=== PATIENT | male | born 1940 | race Caucasian/White ===

== ENCOUNTER 2018-11-15 11:07 | Day surgery (SDC) | payer MEDICARE, OTHER, SELFPAY ==
--- NOTE | 2018-11-15 | PATH_ITS ---
[facility] Accession Number: [id number] . 01 Material submitted: . PART A: colon - RIGHT COLON BIOPSIES PART B: colon - LEFT COLON BIOPSIES PART C: colon - TRANSVERSE COLON BIOSPIES PART D: rectum - RECTAL BIOPSIES . 02 Diagnosis: A. Right Colon, Biopsies: Superficial portions of colorectal mucosa with no significant histomorphologic abnormality. Negative for active inflammation, granulomas, features of dysplasia, or malignancy. . B. Left Colon, Biopsies: Superficial portions of colorectal mucosa with no significant histomorphologic abnormality. Negative for active inflammation, granulomas, features of dysplasia, or malignancy. . C. Transverse Colon Biopsies: Superficial portions of colorectal mucosa with no significant histomorphologic abnormality. Negative for active inflammation, granulomas, features of dysplasia, or malignancy. . D. Rectal Biopsies: Invasive adenocarcinoma, moderately differentiated with mucinous features. Mismatch repair panel by IHC pending; results will be reported as an addendum. MRV/11/16/2018 . 02 Comment: Results discussed with medical pathology teacher María on 11/16/2018 at aproximatley 4:00 p.m. . Part D was reviewed by my colleague, Dr. Gonsales, who concurs with the interpretation. . 02 Electronically signed: . Kim Gomez MD, Pathologist NPI- [id number] . 01 Gross description: . Part A: RIGHT COLON BIOPSIES: Received in formalin are 4 fragment(s) of swift, soft tissue measuring 0.1 x 0.1 x 0.1 cm to 0.2 x 0.2 x 0.2 cm which is entirely submitted and submitted entirely in 1 cassette(s) Part B: LEFT COLON BIOPSIES: Received in formalin are multiple fragment(s) of swift, soft tissue measuring 0.1 x 0.1 x 0.1 cm to 0.3 x 0.2 x 0.2 cm which is entirely submitted and submitted entirely in 1 cassette(s) Part C: TRANSVERSE COLON BIOSPIES: Received in formalin are multiple fragment(s) of swift, soft tissue measuring 0.1 x 0.1 x 0.1 cm to 0.2 x 0.2 x 0.2 cm which is entirely submitted and submitted entirely in 1 cassette(s) Part D: RECTAL BIOPSIES: Received in formalin are multiple fragment(s) of swift, soft tissue measuring 0.1 x 0.1 x 0.1 cm to 0.2 x 0.2 x 0.2 cm which is entirely submitted and submitted entirely in 1 cassette(s) /[facility] /[facility] . 02 Pathologist provided ICD-10: C18.9 . 02 CPT . 401867, 573661, 400720, [id number], [id number], [id number] Performed at: 01 [facility] [address] [place] [address], [place], [place] [id number] MD Yaron Carreno MD Phone: [phone] Performed at: 02 [facility] [address] [place], [place] [id number] MD Ольга Gonsales MD Phone: [phone]
[2018-11-15 11:25] VITALS: BP 136/80; PULSE 80; RESP 16; TEMP 36.9; O2SAT 98; BMI 28.0
[2018-11-15] MEDS: SODIUM CHLORIDE 0.9% 1,000 ML 42 ML IV (11:36)
--- NOTE | 2018-11-15 12:04 | PM.HP.1 ---
History of Present Illness Date Patient Seen: 11/15/18 Time Patient Seen: 12:04 Chief complaint: [id number] COLONOSCOPY W/POSS BX Narrative: History of colon polyps Patient History Surgical History (Updated 11/14/18 @ 16:55 by Angelica Turcios RN) History of colonoscopy (Acute) Social History household members: spouse Family & Social History Social History: household members spouse Meds Home Medications Medication Instructions Recorded Confirmed Type aspirin 81 mg PO DAILY 11/15/18 11/15/18 History Allergies Allergy/AdvReac Type Severity Reaction Status Date / Time No Known Drug Allergies Allergy Verified 11/15/18 11:19 Exam Vital Signs (past 8 hours): - 11/15/18 11:25 Temperature 98.4 F Pulse Rate 80 Respiratory Rate 16 Blood Pressure 136/80 Pulse Oximetry 98 Oxygen Delivery Method Room Air Narrative Exam Narrative: Oropharynx free of lesions Chest clear to auscultation and percussion Cardiac exam reveals no S3 or murmur. Assessment & Plan Assessment & Plan narrative: History of colon polyps plan is for repeat colonoscopy. Risks, benefits, alternatives have been explained.
--- NOTE | 2018-11-15 12:05 | PM.OP.ENDO ---
Operative Date/Time/Diagnoses Date of procedure: 11/15/18 Time of procedure: 12:05 Pre-op diagnosis: See indication and findings Procedure & Clinicians Study performed: Colonoscopy Same procedure as scheduled: Yes Indications: Ulcerative colitis history Surgeon: Bonnie Cobian Procedure Notes Procedure in detail: After informed consent was obtained the patient was placed in left lateral decubitus position. The video colonoscope was introduced the rectum and slowly advanced to the cecum. On slow withdrawal mucosa was carefully examined. The scope was removed. The patient tolerated procedure well. The preparation was only fair in the right side of the colon with some retained vegetable matter not allowing for complete evacuation of remaining fluid. In addition patient became a little combative when the scope was in the right colon. Blood loss none Complications none Medications Total sedation time 39 minutes Fentanyl 200 mg Versed 9 mg IV titration Findings: 1. No evidence for underlying colitis. Mucosa looks quite normal. Two biopsies taken every 10 cm in the right, transverse, and left colon. 2. Rectum reveals 4 x 6 cm flat though irregular lesion from the anal verge up to 6 cm. Several biopsies were taken. This may well represent adenocarcinoma of the rectum. We will merely await biopsy results hopefully by Tuesday. If it is malignant as expected will need to perform MRI with rectal protocol and refer to colorectal surgery. I will be in touch with Dr. Flores.
[2018-11-15] MEDS: fentaNYL 250 MCG/5 ML INJ IV (13:25)
[2018-11-15] MEDS: MIDAZOLAM 5 MG/5 ML VIAL IV (13:28)
[2018-11-15 14:02] VITALS: BP 105/64; PULSE 73; RESP 14; TEMP 36.6; O2SAT 98
[2018-11-15 14:07] VITALS: BP 113/62; PULSE 68; RESP 12; O2SAT 97
[2018-11-15 14:12] VITALS: BP 107/66; PULSE 70; RESP 11; O2SAT 97
[2018-11-15 14:22] VITALS: BP 110/61; PULSE 72; RESP 18; TEMP 36.6; O2SAT 98
--- NOTE | 2018-11-15 14:23 | SUR.PHASEI ---
PACU Post procedure note: VSS, O2 Sat on RA WNL, No complaints of pain. tolerating po without any nausea. Stable for transfer to Phase II. Lissy Shin RN.
[2018-11-15 14:55] VITALS: BP 114/68; PULSE 77; RESP 18; O2SAT 99
== END 2018-11-15 15:10 ==
PROVIDERS: PCP Family Medicine; Visit Provider Internal Medicine Gastroenterology
PROC: 0DJD8ZZ Inspection of Lower Intestinal Tract, Via Natural or Artificial Opening Endoscopic (ICD-10-PCS; CPT 45378; principal; 2018-11-15 13:30)
DX: Z86.010 Personal history of colon polyps (principal); Z87.19 Personal history of other diseases of the digestive system; C20 Malignant neoplasm of rectum
CPT/HCPCS: 45380; 88305; 88341; 88342; J2250; J3010

== ENCOUNTER 2019-02-06 11:10 | Day surgery (SDC) | payer MEDICARE, OTHER, SELFPAY ==
[2019-02-01 09:01] VITALS: BMI 28.0
[2019-02-06] VITALS (8 sets, daily range): BP systolic 116–143; BP diastolic 63–77; PULSE 64–79; RESP 10–17; TEMP 36.1–36.9; O2SAT 97–100; BMI 28.0
--- NOTE | 2019-02-06 | DI.RAD.S_ITS ---
PROCEDURE: XR CHEST 1V INDICATIONS: PORT A CATH TECHNIQUE: One view of the chest was acquired. COMPARISON: [facility], CT, CHEST HIGH RESOLUTION, 11/23/2011, 10:38. FINDINGS: Surgical changes and devices: Central line from left-sided approach crosses the midline to the azygos arch area of the superior vena cava region, with a tight loop at its proximal aspect. Lungs and pleura: Lungs are abnormal with a pulmonary fibrosis pattern previously present during CT scanning utilizing high resolution technique 11/23/11. This appears to have progressed.. No pleural effusions or pneumothorax. Mediastinum: Mediastinal contours appear normal. Heart size is normal. Bones and chest wall: No suspicious bony lesions. Overlying soft tissues appear unremarkable. IMPRESSION: Progression of pulmonary fibrosis from 2011, central line crosses the midline, Port-A-Cath type, with a loop in the catheter immediately beyond the port itself, which has potential given the tight loop appearance of kinking of the catheter subsequently. No pneumothorax. Dictated by: Nestor Bryan M.D. on 02/06/2019 at 15:20 Approved by: Nestor Bryan M.D. on 02/06/2019 at 15:22
[2019-02-06] MEDS: LACTATED RINGERS 1,000 ML 100 ML IV (11:40)
--- NOTE | 2019-02-06 12:38 | PM.PREOP ---
Pre-operative Note Interval Note History & Physical reviewed/Exam performed by Physician: Yes Changes to H&P: No
[2019-02-06] MEDS: CEFAZOLIN 2 GM/100 ML FROZ.PIGGY IV (12:55)
--- NOTE | 2019-02-06 13:20 | SUR.OPER ---
Supine on padded OR bed, head on pillow, arms padded and tucked at sides, legs uncrossed, safety belt at thigh.
[2019-02-06] MEDS: HEPARIN 5,000 UNIT, SODIUM CHLORIDE 0.9% 50 ML IV (13:28)
[2019-02-06] MEDS: BUPIVACAINE 0.25% (PF) VIAL 30 ML INJ (13:29)
--- NOTE | 2019-02-06 14:16 | P.OP_ITS ---
Operative Date/Time/Diagnoses Date of procedure: 02/06/19 Time of procedure: 14:08 Pre-op diagnosis: rectal cancer Post-op diagnosis: same Procedure & Clinicians Procedure: port a cath insertion Same procedure as scheduled: Yes Indications: 78-year-old male with a diagnosis of rectal cancer here for Port-A-Cath insertion to deliver his neoadjuvant therapy. Surgeon: Ru Godinez Click Yes if Unassisted: Yes Anesthesia Type: General Operative Notes Findings: Appropriate positioning of the port a cath Prosthetic devices, grafts, tissues, transplants, or devices: port a cath Estimated Blood Loss (mL): 5 Blood products transfused: none Procedure in detail: Patient was brought to the operating room and placed supine on the table. Bilateral lower extremity compression devices were applied. General anesthesia was induced and he was intubated with a LMA. He received 1 2 g of Ancef. He was prepped and draped in usual sterile fashion. Time-out was performed for the correct patient procedure necessary equipment within the operating room. The left subclavian vein was accessed. There was venous return. The guidewire was then threaded through the needle and fluoroscopy was used to confirm its position. The dilator was then placed over the wire. The catheter was then threaded through the sheath and its position was verified with fluoroscopy. A pocket was made for the Port-A-Cath in the left chest wall. Incision was made through the skin and the subcutaneous tissues were divided with electrocautery. The port which had been previously flushed was then attached to the catheter. The port was then secured to the pectoral fascia usin g 3 0 Prolene stitches. The port's function was checked to ensure that it flushed and had blood return. The incision was hemostatic. The subcutaneous tissue was reapproximated using a single 3 0 of acral suture and skin was closed using a running 4 Monocryl followed by the application of Dermabond. Patient tolerated procedure well. He emerged from anesthesia and was transferred to the postoperative care unit in stable condition where chest x-ray is pending. Complications: none Condition: stable Disposition: same day surgery
--- NOTE | 2019-02-06 14:41 | SUR.PHASEII ---
brought in, d/c instructions discussed with both, both voiced an understanding. Pt wanting to stay, at bedside. L chest c/d/i. with ice pack in place.
== END 2019-02-06 15:00 | disposition home or self-care (01) ==
PROVIDERS: PCP Family Medicine; Visit Provider Surgery
PROC: (CPT 36561; principal; 2019-02-06 12:45)
DX: C20 Malignant neoplasm of rectum (principal); Z45.2 Encounter for adjustment and management of vascular access device
CPT/HCPCS: 36561; 71045; C1788; J0690; J1644; J2704

== ENCOUNTER → 2019-04-24 09:13 | Outpatient (CLI) | payer MEDICARE, OTHER, SELFPAY ==
--- NOTE | 2019-04-24 09:16 | DI.RAD.S_ITS ---
PROCEDURE: XR CHEST 1V INDICATIONS: possible migration, please verify port placement TECHNIQUE: One view of the chest was acquired. COMPARISON: [facility], , XR CHEST 1V, 02/06/2019, 13:52. FINDINGS: Surgical changes and devices: Left chest port, and the catheter forming a redundant loop in the upper left chest as before. The tip remains unchanged in position, however there is more acute angulation of the catheter. Recommend clinical correlation. Lungs and pleura: Scattered subsegmental atelectasis and/or scarring. No focal consolidation. Overall, no interval change. No pleural effusions or pneumothorax. Mediastinum: Mediastinal contours appear normal. Heart size is normal. Bones and chest wall: No suspicious bony lesions. Overlying soft tissues appear unremarkable. IMPRESSION: Left chest port with the catheter redemonstrating a redundant loop in the upper left chest wall just distal to the port. There is more acute angulated course of the catheter since the prior study . Please correlate clinically. No definite interval change or acute consolidation. Diffuse scarring/atelectasis as before. Dictated by: Zaki Nair M.D. on 04/24/2019 at 9:40 Approved by: Zaki Nair M.D. on 04/24/2019 at 9:44
== END ==
PROVIDERS: Family Provider Family Medicine; PCP Family Medicine
DX: Z45.2 Encounter for adjustment and management of vascular access device (principal); C20 Malignant neoplasm of rectum
CPT/HCPCS: 71045

== ENCOUNTER 2019-06-04 12:31 | Emergency (ER) | payer MEDICARE, OTHER, SELFPAY ==
[2019-06-04 12:32] VITALS: BP 151/75; PULSE 81; RESP 18; TEMP 36.4; O2SAT 99; BMI 29.4
--- NOTE | 2019-06-04 12:34 | DI.RAD.S_ITS ---
PROCEDURE: XR CHEST 1V INDICATIONS: SOB TECHNIQUE: One view of the chest was acquired. COMPARISON: [facility], CR, XR CHEST 1V, 02/06/2019, 13:52. [facility], CR, XR CHEST 1V, 04/24/2019, 9:28. FINDINGS: Surgical changes and devices: Left Port-A-Cath is unchanged compared to 04/24/19. Lungs and pleura: There is an overall appearance of chronic interstitial pulmonary changes. No discrete overlying consolidation is identified. Mediastinum: Mediastinal contours appear normal. Heart size is normal. Bones and chest wall: No suspicious bony lesions. Overlying soft tissues appear unremarkable. IMPRESSION: Chronic interstitial pulmonary changes without definitively identified Dictated by: Laney Daniels M.D. on 06/04/2019 at 12:10 Approved by: Laney Daniels M.D. on 06/04/2019 at 12:13
--- NOTE | 2019-06-04 12:51 | ED.SOB ---
HPI - SOB/Dyspnea General Chief Complaint: Shortness of Breath/Dyspnea Stated Complaint: chemo pt,difficulty breathing/chest pressure,pain Time Seen by Provider: 06/04/19 12:32 Source: patient and family Mode of arrival: Ambulatory Limitations: no limitations History of Present Illness HPI Narrative: 79-year-old male with a history of rectal cancer. Currently undergoing chemotherapy. His last dose was approximately 1 week ago. States that on Tuesday and of last week he had pain in both of his shoulders and upper back. That seemed to improve however he did have fatigue after this round of chemotherapy which he normally does not have. Came in today for shortness of breath. He states that he has had shortness of breath especially with exertion. He states that he feels that he can only take ?30% ?of a breath before he has pain. No sinus congestion. Related Data Previous Rx's Medication Instructions Recorded fluorouracil 5,300 mg IV NOW #1 device 01/23/19 acetaminophen 650 mg PO Q6H PRN #30 cap 02/06/19 ondansetron 8 mg PO Q8H #30 tab 02/13/19 albuterol sulfate 2 puff INHALATION Q4-6H PRN #18 06/04/19 gram loratadine [Claritin] 10 mg PO DAILY PRN #30 tab 06/04/19 Allergies Allergy/AdvReac Type Severity Reaction Status Date / Time No Known Drug Allergies Allergy Verified 02/06/19 11:51 Review of Systems Constitutional Constitutional: Denies fever(s) Cardiovascular Cardiovascular: Reports chest pain, Reports dyspnea and Reports dyspnea on exertion Respiratory Respiratory: Reports cough, Reports dyspnea and Reports dyspnea on exertion Gastrointestinal Gastrointestinal: Denies abdominal pain, Denies nausea and Denies vomiting Musculoskeletal Musculoskeletal: Denies atrophy and Denies arthralgias Integumentary/Breasts Skin/Breast: Denies lesions and Denies rash Neurologic Neurologic: Denies behavioral changes Psychiatric Psychiatric: Denies behavioral changes Hematologic/Lymphatic Hematologic/Lymphatic: Denies easy bleeding and Denies easy bruising Patient History Medical History Cancer of rectum (Acute) Prostate cancer (Acute) Ulcerative colitis (Acute) Surgical History History of colonoscopy (Acute) Social History marital status: household members: spouse Smoking Status: Former smoker alcohol intake: current alcohol intake frequency: a few times a week Exam Initial Vital Signs Initial Vital Signs: Vital Signs Temperature 97.6 F 06/04/19 12:32 Pulse Rate 81 06/04/19 12:32 Respiratory Rate 18 06/04/19 12:32 Blood Pressure 151/75 H 06/04/19 12:32 Pulse Oximetry 99 06/04/19 12:32 Const General: cooperative and comfortable Orientation: alert and awake HENMT Head: normal to inspection and normocephalic Resp Effort & Inspection: normal respiratory effort Auscultation: clear to auscultation bilaterally Cardio Rate: regular rate Rhythm: regular rhythm GI Inspection: non-distended Palpation: soft Skin Lesions: no lesions Rashes: no rashes Neuro General: alert and awake Cognition: normal cognition Speech: speech normal Motor: muscle tone normal throughout Extrem General: normal to inspection and capillary refill normal Psych Appearance: grossly normal and well kempt Course Orders Ordered: ED Orders 06/04/19 12:34 XR chest 1V Stat EKG-12 Lead Stat 06/04/19 12:52 CT angio chest PE protocol Stat 06/04/19 13:00 B Type Natriuretic Peptide Stat Complete Blood Count AUTO DIFF Stat Comprehensive Metabolic Panel Stat Lipase Stat Partial Thromboplastin Time Stat Prothrombin Time INR Stat Troponin I Stat Discontinued Medications Sodium Chloride (Normal Saline 0.9%) 1,000 mls @ 1,000 mls/hr IV BOLUS ONE Stop: 06/04/19 13:50 Last Infusion: 06/04/19 14:26 Dose: 0 mls/hr Documented by: Admin: 06/04/19 13:26 Dose: 1,000 mls/hr Documented by: GLENNA Vital Signs Vital signs: Vital Signs - 8 hr 06/04/19 12:32 06/04/19 13:00 06/04/19 14:00 Temperature 97.6 F Pulse Rate 81 82 64 Respiratory Rate 18 21 16 Blood Pressure 151/75 H Blood Pressure [Right Arm] 151/75 H 128/77 Pulse Oximetry 99 98 99 06/04/19 14:30 Temperature Pulse Rate 62 Respiratory Rate 17 Blood Pressure Blood Pressure [Right Arm] 128/76 Pulse Oximetry 98 MDM - SOB/Dyspnea Lab Data Attestation: I reviewed the patient's lab results. Result diagrams: 06/04/19 13:00 06/04/19 13:00 Labs: Lab Results 06/04/19 06/04/19 06/04/19 Range/Units 13:00 13:00 13:00 WBC 4.0 L (4.5-11.0) X10^3/uL RBC 3.79 L (4.5-5.9) X10^6/uL Hgb 12.7 L (13.5-17.5) g/dL Hct 37.6 L (41-53) % MCV 99.3 (80-100) fL MCH 33.4 (26-34) PG MCHC 33.7 (30-36) % RDW 16.6 H (11.6-14.8) % Plt Count 80 L (150-400) X10^3/uL Neut % (Auto) 25.0 L (50-75) % Lymph % (Auto) 59.3 H (25-40) % [place] % (Auto) 11.7 (3-14) % Eos % (Auto) 3.5 (2-4) % Baso % (Auto) 0.5 (0-2) % Neut # (Auto) 1000 L (8645-8305) /uL Lymph # (Auto) 2400 (0088-7257) /uL [place] # (Auto) 500 (0-900) /uL Eos # (Auto) 100 (0-450) /uL Baso # (Auto) 0 (0-100) /uL PT 11.3 (10.1-12.7) SECONDS INR 1.0 (0.9-1.3) APTT 30 (26.4-36.2) SECONDS Sodium 140 (137-145) mmol/L Potassium 4.5 (3.4-5.1) mmol/L Chloride 105 (98-107) mmol/L Carbon Dioxide 27 (22-32) mmol/L BUN 14 (9-20) mg/dL Creatinine 0.70 (0.66-1.25) mg/dL Estimated GFR > 60.0 (>60) mL/min BUN/Creatinine Ratio 20.0 (6-22) Glucose 106 (80-110) mg/dL Calcium 9.3 (8.4-10.2) mg/dL Total Bilirubin 0.5 (0.2-1.3) mg/dL AST 43 (17-59) IU/L ALT 22 (<50) IU/L Alkaline Phosphatase 85 (38-126) U/L Troponin I < 0.012 (0.01-0.034) ng/mL B-Natriuretic Peptide < 100 (<100) Total Protein 7.5 (6.3-8.2) g/dL Albumin 4.2 (3.5-5.0) g/dL Globulin 3.3 (1.7-4.1) g/dL Albumin/Globulin Ratio 1.3 (1.0-2.8) Lipase 116 (23-300) U/L Imaging Data Chest x-ray: Radiologist's impression: [address] [place] [address] XRay Report Signed Patient: Ian Butcher LMR#: [id number] : 1Acct:[id number] Age/Sex: 79 / MDate of Service: 06/04/19 Loc: ED Accession Number: [id number] Procedure: XR chest 1V Ordering Provider: Froilan Velasquez D.O. PROCEDURE: XR CHEST 1V INDICATIONS: SOB TECHNIQUE: One view of the chest was acquired. COMPARISON: [facility], [place]BER[place], XR CHEST 1V, 02/06/2019, 13:52. [facility], CR, XR CHEST 1V, 04/24/2019, 9:28. FINDINGS: Surgical changes and devices: Left Port-A-Cath is unchanged compared to 04/24/19. Lungs and pleura: There is an overall appearance of chronic interstitial pulmonary changes. No discrete overlying consolidation is identified. Mediastinum: Mediastinal contours appear normal. Heart size is normal. Bones and chest wall: No suspicious bony lesions. Overlying soft tissues appear unremarkable. IMPRESSION: Chronic interstitial pulmonary changes without definitively identified Dictated by: Laney Daniels M.D. on 06/04/2019 at 12:10 Approved by: Laney Daniels M.D. on 06/04/2019 at 12:13 CT scan - chest: Radiologist's impression: [address] [address] [address] Scan Report Signed Patient: Ian Butcher LMR#: [id number] : 1Acct:[id number] Age/Sex: 79 / MDate of Service: 06/04/19 Loc: ED Accession Number: [id number] Procedure: CT angio chest PE protocol Ordering Provider: Froilan Velasquez D.O. PROCEDURE: CT ANGIO CHEST PE PROTOCOL INDICATIONS: Chest pain, shortness of breath, tachycardia TECHNIQUE: After the administration of intravenous contrast, 2 mm thick sections acquired from the pulmonary apices to the posterior costophrenic angles. 3-dimensional maximum intensity projection (MIP) coronal and sagittal reformats were then acquired through the thorax. For radiation dose reduction, the following was used: automated exposure control, adjustment of mA and/or kV according to patient size. COMPARISON: [facility], CT, CHEST HIGH RESOLUTION, 11/23/2011, 10:38. FINDINGS: Image quality: Excellent. Pulmonary arteries: Pulmonary arteries are normal in size, and demonstrate no intraluminal filling defects to suggest central pulmonary embolism. Lungs and pleura: Significant interval progression of pulmonary interstitial fibrosis with a bibasilar predominance. Significant progression of bibasilar honeycombing. Findings consistent with UIP. Lungs are clear. No pleural effusions or pneumothorax. Central and peripheral airways are patent. Mediastinum: Heart size is normal, without pericardial effusion. No mediastinal or hilar adenopathy. Thoracic aorta is normal in caliber and enhancement. Esophagus is normal in caliber, without hiatal hernia. Bones and chest wall: No suspicious bony lesions. Ribs and thoracic spine appear intact throughout. Thyroid gland is unremarkable. No axillary or supraclavicular adenopathy. Abdomen: Visualized upper abdominal solid organs appear normal in the early arterial phase of enhancement. IMPRESSION: 1. No evidence of pulmonary emboli. 2. Significant interval progression of chronic interstitial pulmonary fibrosis, with significant progression of bibasilar honeycombing. Findings are consistent with progression of UIP. Dictated by: Georgi Calvin M.D. on 06/04/2019 at 13:28 Approved by: Georgi Calvin M.D. on 06/04/2019 at 13:31 ECG Data Attestation: I personally reviewed and interpreted this ECG as follows: Prior ECG tracings: not available for review Interpretation: Sinus rhythm Ventricular rate is 75 Normal axis Normal QRS Normal QTC No ST T wave changes MDM Narrative Medical decision making narrative: Patient is not hypoxic, not tachypneic. CT scan shows no signs of pulmonary embolism. He has had a cough recently. He is not taking any medications besides his chemotherapy. His platelets are unremarkable today. No indication for antibiotics. Will send him home with Claritin and also an albuterol inhaler to see if this does not work over the next week when he will see his oncologist. He does have what appears to be interstitial lung disease on his CT scan. He states that he has been exposed to asbestos. Has been followed by a credit analyst however was told that he does not need to follow up with them unless his symptoms worsen. I feel that given his other symptoms today this is most likely an upper respiratory issue. Because of his chemotherapy issues will hold on prednisone for now. He was given return precautions and follow-up instructions. He expressed understanding and agreement plan. Discharge Plan Departure Patient Disposition: Home Clinical Impression: Shortness of Breath Discharge Date/Time: 06/04/19 14:45 Instructions: DI for Shortness of Breath, How to Manage Shortness of Breath Activity Restrictions/Additional Instructions: I recommend that you take the medications as directed. Keep all of your scheduled medical appointments. Contact your primary provider for follow-up. Return to the emergency department for any new or worsening symptoms Prescriptions: New albuterol sulfate 90 mcg/actuation HFA aerosol inhaler 2 puff INHALATION Q4-6H PRN (Reason: shortness of breath or wheezing) Qty: 18 RF: 0 loratadine [Claritin] 10 mg tablet 10 mg PO DAILY PRN (Reason: allergy symptoms) Qty: 30 RF: 0 No Action acetaminophen 325 mg capsule 650 mg PO Q6H PRN (Reason: pain) Qty: 30 RF: 0 fluorouracil 2.5 gram/50 mL Solution 5,300 mg IV NOW Qty: 1 RF: 0 ondansetron 8 mg Tablet,Disintegrating 8 mg PO Q8H Qty: 30 RF: 3 Referrals: Maciel Flores MD [Primary Care Provider] -
[2019-06-04 13:00] VITALS: BP 151/75; PULSE 82; RESP 21; O2SAT 98
[2019-06-04 13:13] LABS: Add Manual Diff / Slide Review NO; Basophils Absolute Auto 0 /uL (0-100); Basophils Percent Auto 0.5 % (0-2); Eosinophils Absolute Auto 100 /uL (0-450); Eosinophils Percent Auto 3.5 % (2-4); Hematocrit 37.6 % (41-53); Hemoglobin 12.7 g/dL (13.5-17.5); Lymphocytes Absolute Auto 2400 /uL (1100-4500); Lymphocytes Percent Auto 59.3 % (25-40); Mean Corpuscular HGB Conc 33.7 % (30-36); Mean Corpuscular Hemoglobin 33.4 PG (26-34); Mean Corpuscular Volume 99.3 fL (80-100); Monocytes Absolute Auto 500 /uL (0-900); Monocytes Percent Auto 11.7 % (3-14); Neutrophils Absolute Auto 1000 /uL (1500-7000); Platelet Count 80 X10^3/uL (150-400); Red Blood Cell Count 3.79 X10^6/uL (4.5-5.9); Red Cell Distribution Width 16.6 % (11.6-14.8)
[2019-06-04 13:22] LABS: Prothrombin Time 11.3 SECONDS (10.1-12.7)
[2019-06-04 13:25] LABS: PTT Partial Thromboplastin Tim 30 SECONDS (26.4-36.2)
[2019-06-04] MEDS: SODIUM CHLORIDE 0.9% 1,000 ML 1000 ML IV (13:26)
[2019-06-04 13:28] LABS: B Type Natriuretic Peptide < 100 (<100)
[2019-06-04 13:29] LABS: Alanine Aminotransferase 22 IU/L (<50); Albumin 4.2 g/dL (3.5-5.0); Albumin Globulin Ratio 1.3 (1.0-2.8); Alkaline Phosphatase 85 U/L (38-126); Aspartate Aminotransferase 43 IU/L (17-59); Bilirubin Total 0.5 mg/dL (0.2-1.3); Blood Urea Nitrogen 14 mg/dL (9-20); Calcium 9.3 mg/dL (8.4-10.2); Carbon Dioxide 27 mmol/L (22-32); Chloride 105 mmol/L (98-107); Estimated Glomerular Filt Rate > 60.0 mL/min (>60); Globulin 3.3 g/dL (1.7-4.1); Glucose 106 mg/dL (80-110); HEMOLYSIS 34 (0-50); Lipase 116 U/L (23-300); Potassium 4.5 mmol/L (3.4-5.1); Sodium 140 mmol/L (137-145); Total Protein 7.5 g/dL (6.3-8.2)
[2019-06-04 13:40] LABS: Troponin I < 0.012 ng/mL (0.01-0.034)
[2019-06-04 14:00] VITALS: BP 128/77; PULSE 64; RESP 16; O2SAT 99
[2019-06-04 14:30] VITALS: BP 128/76; PULSE 62; RESP 17; O2SAT 98
== END 2019-06-04 14:45 | disposition home or self-care (01) ==
PROVIDERS: Emergency Provider Emergency Medicine; Family Provider Family Medicine; PCP Family Medicine
DX: R06.02 Shortness of breath (principal); R00.0 Tachycardia, unspecified; C20 Malignant neoplasm of rectum
CPT/HCPCS: 36415; 71045; 71275; 80053; 83690; 83880; 84484; 85025; 85610; 85730; 93005; 96360; 99283; 99285; Q9967

== ENCOUNTER 2019-10-02 12:16 | Emergency (ER) | payer MEDICARE, OTHER, SELFPAY ==
[2019-10-02] VITALS (8 sets, daily range): BP systolic 114–138; BP diastolic 63–73; PULSE 68–84; RESP 10–33; TEMP 36.6; O2SAT 93–100
--- NOTE | 2019-10-02 12:36 | ED_ITS ---
HPI - SOB/Dyspnea <Janeth Sr, OBSTETRICS GYN-BC - Last Filed: 10/02/19 19:10> General Chief Complaint: Shortness of Breath/Dyspnea Stated Complaint: SOB Time Seen by Provider: 10/02/19 12:20 Source: patient and family Mode of arrival: Wheelchair Limitations: no limitations History of Present Illness HPI Narrative: The patient is a 79-year-old male former smoker who presents with his for chief complaint of worsening shortness of breath. He has a complicated medical history including pulmonary fibrosis, pulmonary nodules, asbestosis, rectal cancer. He recently saw his pipeline dispatch operator, Dr. Verdin with the [facility] on 09/27 for a pulmonary fibrosis exacerbation. At that point he was placed on 4 L supplemental oxygen for activity. He was started on prednisone 60 mg daily. He states that now with activity he is desatting to as low as 71%. He is also concerned about lower leg swelling that he noticed this morning. Regarding his rectal cancer, he underwent chemotherapy and XRT. His initial shortness of breath started after chemotherapy and has been worsening since June. His rectal cancer has shrunken, but surgeons have canceled the surgery due to high risk from his respiratory status. 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 He also has a extensive smoking history. Denies any cardiac history, denies any chest pain, denies any fevers or cough today. He also denies any abdominal pain nausea vomiting or diarrhea. He tested negative for covid19 on the of this month. He had a CT chest abdomen pelvis on 09/21/2019. Chart review illustrate diagnosis of pulmonary fibrosis exacerbation with hypoxemia and ground-glass opacities due to chemotherapy for rectal cancer on 09/28/19 The patient does have a port in place, with a known thrombus. He was started on Lovenox twice a day on Tuesday the . We are not to use his port due to the thrombus. Related Data Previous Rx's Medication Instructions Recorded fluorouracil 5,300 mg IV NOW #1 device 01/23/19 acetaminophen 650 mg PO Q6H PRN #30 cap 02/06/19 ondansetron 8 mg PO Q8H #30 tab 02/13/19 albuterol sulfate 2 puff INHALATION Q4-6H PRN #18 06/04/19 gram loratadine [Claritin] 10 mg PO DAILY PRN #30 tab 06/04/19 hydrocodone-acetaminophen 1 tab PO Q6H PRN #30 tab 06/14/19 capecitabine 1,500 mg PO BID #180 tab 06/26/19 capecitabine 300 mg PO BID #120 tab 06/26/19 furosemide 20 mg PO DAILY #7 tab 10/02/19 Allergies Allergy/AdvReac Type Severity Reaction Status Date / Time No Known Drug Allergies Allergy Verified 02/06/19 11:51 Review of Systems <[facility] - Last Filed: 10/02/19 19:10> Review of Systems Narrative: GENERAL: Denies chills, fatigue, malaise, fever, sweats. HEENT: Denies sinus pain, ear pain, sore throat, difficulty swallowing, dizziness. RESPIRATORY: See HPI CARDIOVASCULAR: Denies chest pain, palpitations, orthopnea, edema, GASTROINTESTINAL: Denies nausea, vomiting, abdominal pain, diarrhea, constipation, melena. : Denies dysuria, frequency, incontinence, hematuria, urinary retention. MUSCULOSKELETAL: See HPI SKIN: Denies rash, skin lesions, or other NEUROLOGIC: Denies weakness, headache, numbness, change in speech, confusion, seizures, incoordination. PSYCHIATRIC: No concerning psychosocial issues. 12 point review of systems is negative except for those stated above Patient History [facility] - Last Filed: 10/02/19 19:10> Social History marital status: household members: spouse Smoking Status: Former smoker alcohol intake: current Smoking Status: Former smoker alcohol intake frequency: a few times a week Exam <LORNE DuncanP- - Last Filed: 10/02/19 19:10> Narrative Exam Narrative: GENERAL: This is a well-nourished, well-developed patient, appear short of breath HEAD: Atraumatic. Normocephalic. No temporal or scalp tenderness. EYES: Pupils equal round and reactive. Extraocular motions intact. No scleral icterus. No injection or drainage. ENT: Nose without bleeding, purulent drainage or septal hematoma. Throat without erythema, tonsillar hypertrophy or exudate. Uvula midline. Airway patent. NECK: Trachea midline. No JVD or lymphadenopathy. Supple, nontender, no meningeal signs. CARDIOVASCULAR: Regular rate and rhythm without murmurs, gallops, or rubs. RESPIRATORY: Coarse with bilateral crackles bilateral lower lobes to ausc ultation. Breath sounds equal bilaterally. No wheezes, rales, or rhonchi. No cough. 1-2 word dyspnea noted with motion, speaking full sentences at rest GASTROINTESTINAL: Abdomen soft, non-tender, nondistended. No hepato- splenomegaly, or palpable masses. No guarding. EXTREMITIES: +1 edema noted bilateral lower extremities BACK: Nontender without deformity or crepitance. No flank tenderness. NEURO: AOx3. SKIN: No rash or erythema on visible skin Initial Vital Signs Initial Vital Signs: Vital Signs Temperature 97.8 F 10/02/19 12:30 Pulse Rate 84 10/02/19 12:30 Respiratory Rate 14 10/02/19 12:30 Blood Pressure 126/70 10/02/19 12:30 Pulse Oximetry 98 10/02/19 12:30 <Caryn Khan MD - Last Filed: 10/03/19 11:17> Initial Vital Signs Initial Vital Signs: Vital Signs Temperature 97.8 F 10/02/19 12:30 Pulse Rate 84 10/02/19 12:30 Respiratory Rate 14 10/02/19 12:30 Blood Pressure 126/70 10/02/19 12:30 Pulse Oximetry 98 10/02/19 12:30 Course <YIN Duncan-BC - Last Filed: 10/02/19 19:10> Orders Ordered: Discontinued Medications Furosemide (Lasix) 20 mg IV NOW ONE Stop: 10/02/19 16:39 Reevaluation(s) Reevaluation #1: I spoke at length with the patient and his . He does not want to be admitted at the hospital at this point time. He would rather do a small dose of diuretic outpatient. We were able to obtain a an emergency department echocardiogram. However the patient is adamant that he does not want to come into the hospital. He would rather follow up with primary care provider and pipeline dispatch operator as an outpatient. I did discuss with the patient and his that he may benefit from palliative care at this point time in order to help maximize the quality of his life and focus on his comfort. Patient for very accepting of palliative care idea and would like to follow up with primary care provider regarding this. Time: 14:00 Consultations Consultation #1: I spoke with Dr. Garland, literacy consultant with Dr Juarez from the [facility] regarding pulmonology. We discussed results, imaging results with him. Dr. Garland states that the patient is at the end stage of terminal hermann g disease. He states that if wanted, he can be admitted for echo and some diuresis. He states that it really depends on the patient's goals of care. He states the most important thing is ruling out a PE, which is was accomplished. Time: 13:20 Vital Signs Vital signs: Vital Signs - 8 hr 10/02/19 12:30 10/02/19 12:55 10/02/19 13:37 Temperature 97.8 F Pulse Rate 84 76 72 Respiratory Rate 14 29 H 13 Blood Pressure 126/70 Blood Pressure [Right Arm] 126/73 126/73 Pulse Oximetry 98 95 98 10/02/19 14:03 10/02/19 14:30 10/02/19 15:07 Temperature Pulse Rate 73 71 70 Respiratory Rate 25 H 18 10 L Blood Pressure Blood Pressure [Right Arm] 118/63 114/68 124/69 Pulse Oximetry 100 95 96 10/02/19 16:35 10/02/19 17:21 Temperature Pulse Rate 68 74 Respiratory Rate 24 33 H Blood Pressure Blood Pressure [Right Arm] 137/71 138/70 Pulse Oximetry 93 <Caryn Khan MD - Last Filed: 10/03/19 11:17> Orders Ordered: Discontinued Medications Furosemide (Lasix) 20 mg IV NOW ONE Stop: 10/02/19 16:39 Vital Signs Vital signs: Vital Signs - 8 hr 10/02/19 12:30 10/02/19 12:55 10/02/19 13:37 Temperature 97.8 F Pulse Rate 84 76 72 Respiratory Rate 14 29 H 13 Blood Pressure 126/70 Blood Pressure [Right Arm] 126/73 126/73 Pulse Oximetry 98 95 98 10/02/19 14:03 10/02/19 14:30 10/02/19 15:07 Temperature Pulse Rate 73 71 70 Respiratory Rate 25 H 18 10 L Blood Pressure Blood Pressure [Right Arm] 118/63 114/68 124/69 Pulse Oximetry 100 95 96 10/02/19 16:35 10/02/19 17:21 Temperature Pulse Rate 68 74 Respiratory Rate 24 33 H Blood Pressure Blood Pressure [Right Arm] 137/71 138/70 Pulse Oximetry 93 MDM - SOB/Dyspnea <YIN Duncan-BC - Last Filed: 10/02/19 19:10> Lab Data Result diagrams: 10/02/19 12:40 10/02/19 12:40 Labs: Lab Results 10/02/19 10/02/19 10/02/19 Range/Units 12:40 12:40 12:40 WBC 9.2 (4.5-11.0) X10^3/uL RBC 3.82 L (4.5-5.9) X10^6/uL Hgb 13.2 L (13.5-17.5) g/dL Hct 39.1 L (41-53) % MCV 102.3 H (80-100) fL MCH 34.6 H (26-34) PG MCHC 33.8 (30-36) % RDW 14.5 (11.6-14.8) % Plt Count 246 (150-400) X10^3/uL Neut % (Auto) 85.5 H (50-75) % Lymph % (Auto) 10.9 L (25-40) % [place] % (Auto) 3.2 (3-14) % Eos % (Auto) 0.0 L (2-4) % Baso % (Auto) 0.4 (0-2) % Neut # (Auto) 7800 H (3039-9419) /uL Lymph # (Auto) 1000 L (9892-1088) /uL [place] # (Auto) 300 (0-900) /uL Eos # (Auto) 0 (0-450) /uL Baso # (Auto) 0 (0-100) /uL PT 11.6 (10.1-12.7) SECONDS INR 1.0 (0.9-1.3) APTT 38 H D (26.4-36.2) SECONDS Sodium (137-145) mmol/L Potassium (3.4-5.1) mmol/L Chloride (98-107) mmol/L Carbon Dioxide (22-32) mmol/L BUN (9-20) mg/dL Creatinine (0.66-1.25) mg/dL Estimated GFR (>60) mL/min BUN/Creatinine Ratio (6-22) Glucose (80-110) mg/dL Lactate (0.7-2.1) mmol/L Calcium (8.4-10.2) mg/dL Magnesium (1.6-2.3) mg/dL Total Bilirubin (0.2-1.3) mg/dL AST (17-59) IU/L ALT (<50) IU/L Alkaline Phosphatase (38-126) U/L Total Creatine Kinase (55-170) U/L CK-MB (CK-2) CK-MB (CK-2) Rel Index Troponin I (0.01-0.034) ng/mL NT-Pro-B Natriuret Pep 161 (<450) pg/mL Total Protein (6.3-8.2) g/dL Albumin (3.5-5.0) g/dL Globulin (1.7-4.1) g/dL Albumin/Globulin Ratio (1.0-2.8) Procalcitonin (<0.5) ng/mL 10/02/19 10/02/19 10/02/19 Range/Units 12:40 12:40 12:40 WBC (4.5-11.0) X10^3/uL RBC (4.5-5.9) X10^6/uL Hgb (13.5-17.5) g/dL Hct (41-53) % MCV (80-100) fL MCH (26-34) PG MCHC (30-36) % RDW (11.6-14.8) % Plt Count (150-400) X10^3/uL Neut % (Auto) (50-75) % Lymph % (Auto) (25-40) % [place] % (Auto) (3-14) % Eos % (Auto) (2-4) % Baso % (Auto) (0-2) % Neut # (Auto) (6978-0385) /uL Lymph # (Auto) (6914-9666) /uL [place] # (Auto) (0-900) /uL Eos # (Auto) (0-450) /uL Baso # (Auto) (0-100) /uL PT (10.1-12.7) SECONDS INR (0.9-1.3) APTT (26.4-36.2) SECONDS Sodium 140 (137-145) mmol/L Potassium 4.4 (3.4-5.1) mmol/L Chloride 105 (98-107) mmol/L Carbon Dioxide 26 (22-32) mmol/L BUN 16 (9-20) mg/dL Creatinine 0.72 (0.66-1.25) mg/dL Estimated GFR > 60.0 (>60) mL/min BUN/Creatinine Ratio 22.2 H (6-22) Glucose 137 H (80-110) mg/dL Lactate 1.6 (0.7-2.1) mmol/L Calcium 9.4 (8.4-10.2) mg/dL Magnesium 2.3 (1.6-2.3) mg/dL Total Bilirubin 0.5 (0.2-1.3) mg/dL AST 40 (17-59) IU/L ALT 26 (<50) IU/L Alkaline Phosphatase 95 (38-126) U/L Total Creatine Kinase < 20 L (55-170) U/L CK-MB (CK-2) TNP CK-MB (CK-2) Rel Index TNP Troponin I < 0.012 (0.01-0.034) ng/mL NT-Pro-B Natriuret Pep (<450) pg/mL Total Protein 7.6 (6.3-8.2) g/dL Albumin 3.9 (3.5-5.0) g/dL Globulin 3.7 (1.7-4.1) g/dL Albumin/Globulin Ratio 1.1 (1.0-2.8) Procalcitonin < 0.05 (<0.5) ng/mL 10/02/19 Range/Units 16:40 WBC (4.5-11.0) X10^3/uL RBC (4.5-5.9) X10^6/uL Hgb (13.5-17.5) g/dL Hct (41-53) % MCV (80-100) fL MCH (26-34) PG MCHC (30-36) % RDW (11.6-14.8) % Plt Count (150-400) X10^3/uL Neut % (Auto) (50-75) % Lymph % (Auto) (25-40) % [place] % (Auto) (3-14) % Eos % (Auto) (2-4) % Baso % (Auto) (0-2) % Neut # (Auto) (0686-7291) /uL Lymph # (Auto) (2845-3433) /uL [place] # (Auto) (0-900) /uL Eos # (Auto) (0-450) /uL Baso # (Auto) (0-100) /uL PT (10.1-12.7) SECONDS INR (0.9-1.3) APTT (26.4-36.2) SECONDS Sodium (137-145) mmol/L Potassium (3.4-5.1) mmol/L Chloride (98-107) mmol/L Carbon Dioxide (22-32) mmol/L BUN (9-20) mg/dL Creatinine (0.66-1.25) mg/dL Estimated GFR (>60) mL/min BUN/Creatinine Ratio (6-22) Glucose (80-110) mg/dL Lactate (0.7-2.1) mmol/L Calcium (8.4-10.2) mg/dL Magnesium (1.6-2.3) mg/dL Total Bilirubin (0.2-1.3) mg/dL AST (17-59) IU/L ALT (<50) IU/L Alkaline Phosphatase (38-126) U/L Total Creatine Kinase < 20 L (55-170) U/L CK-MB (CK-2) TNP CK-MB (CK-2) Rel Index TNP Troponin I < 0.012 (0.01-0.034) ng/mL NT-Pro-B Natriuret Pep (<450) pg/mL Total Protein (6.3-8.2) g/dL Albumin (3.5-5.0) g/dL Globulin (1.7-4.1) g/dL Albumin/Globulin Ratio (1.0-2.8) Procalcitonin (<0.5) ng/mL Urine Dip Bedside Urine Glucose Negative Bedside Urine Bilirubin - Negative Bedside Urine Ketone - Negative Urine Specific [place] 1.015 Bedside Urine Occult Blood - Negative Bedside Urine pH 5.5 Bedside Urine Protein - Negative Bedside Urine Urobilinogen - Negative Bedside Urine Nitrite - Negative Bedside Urine Leukocytes - Negative Esterase Imaging Data CT scan - chest: Radiologist's Impression: [address] [place] [address] CT Scan Report Signed Patient: Ian Butcher LMR#: [id number] : 1Acct:[id number] Age/Sex: 79 / MDate of Service: 10/02/19 Loc: ED Accession Number: [id number] Procedure: CT angio chest PE protocol Ordering Provider: Janeth Sr [facility] PROCEDURE: CT ANGIO CHEST PE PROTOCOL INDICATIONS: sob, hypoxic TECHNIQUE: After the administration of intravenous contrast, 2 mm thick sections acquired from the pulmonary apices to the posterior costophrenic angles. 3-dimensional maximum intensity projection (MIP) coronal and sagittal reformats were then acquired through the thorax. For radiation dose reduction, the following was used: automated exposure control, adjustment of mA and/or kV according to patient size. COMPARISON: [facility], CT, CT ANGIO CHEST PE PROTOCOL, 06/04/2019, 12:52. FINDINGS: Image quality: Excellent. Pulmonary arteries: Pulmonary arteries are normal in size, and demonstrate no intraluminal filling defects to suggest central pulmonary embolism. Lungs and pleura: The severe honeycombing fibrosis is present bilaterally most confluent within the lung bases. There are focal regions of groundglass opacities with crazy paving predominantly within the right upper lung. No focal airspace consolidation. No pleural effusions or pneumothorax. Mediastinum: Heart size is normal, without pericardial effusion. No mediastinal or hilar adenopathy. Thoracic aorta is normal in caliber and enhancement. Esophagus is normal in caliber, without hiatal hernia. Bones and chest wall: No suspicious bony lesions. Ribs and thoracic spine appear intact throughout. Thyroid gland is unremarkable. No axillary or supraclavicular adenopathy. Abdomen: The liver demonstrates surface nodularity consistent with cirrhosis. Visualized upper abdominal solid organs appear normal in the early arterial phase of enhancement. IMPRESSION: 1. No acute pulmonary embolus. 2. Severe honeycombing fibrosis as above. 3. Crazy paving groundglass opacities within the right upper lobe. Differential considerations include ARDS, bacterial pneumonia, acute interstitial pneumonia, and rarely, pulmonary alveolar proteinosis. Dictated by: Yi Mitchell M.D. on 10/02/2019 at 14:18 Approved by: Yi Mitchell M.D. on 10/02/2019 at 14:40 Chest x-ray: Radiologist's Impression: [place] [id number] [place] [id number] XRay Report Signed Patient: Ian Butcher LMR#: [id number] : 1Acct:[id number] Age/Sex: 79 / MDate of Service: 10/02/19 Loc: ED Accession Number: [id number] Procedure: XR chest 1V Ordering Provider: Janeth Sr-BC PROCEDURE: XR CHEST 1V INDICATIONS: shortness of breath TECHNIQUE: One view of the chest was acquired. COMPARISON: [facility], CT, CT ANGIO CHEST PE PROTOCOL, 06/04/2019, 12:52. [facility], CR, XR CHEST 1V, 04/24/2019, 9:28. [facility], CR, XR CHEST 1V, 02/06/2019, 13:52. [facility], CR, XR CHEST 1V, 06/04/2019, 12:56. FINDINGS: Surgical changes and devices: There is a stable left-sided chest port. Lungs and pleura: Abnormal interstitial prominence is seen throughout, which is most prominent within the mid and inferior right lower lung. This is slightly increased compared to the prior plain film. No pneumothorax or large pleural effusion can be seen. Mediastinum: Mediastinal contours appear normal. Heart size is normal. Bones and chest wall: No suspicious bony lesions. Age-appropriate bony degenerative changes are seen. Overlying soft tissues appear unremarkable. IMPRESSION: Slight increase in the patient's baseline interstitial prominence, likely related to mild superimposed pulmonary edema. As clinically appropriate, a short-term followup chest series (with PA and lateral views) performed in deep inspiration is suggested for further evaluation. Dictated by: Sameer Maldonado M.D. on 10/02/2019 at 11:59 Approved by: Sameer Maldonado M.D. on 10/02/2019 at 12:01 [facility] Narrative Medical decision making narrative: The patient is a 79-year-old male who p resents with a chief complaint of chronic shortness of breath that has worsened over the past few days. He has a very complicated medical history including pulmonary fibrosis, asbestosis, rectal cancer. He had a chest x-ray taken to help rule out pneumonia, reassured by the fact his procalcitonin is less than 0.05 and he has a negative lactate. A CT was done to help evaluate for pulmonary embolism, and this came back with no acute pulmonary embolism. He also had a negative troponin, and a negative repeat troponin as well as a normal BNP. I spoke with on-call for his pipeline dispatch operator who suggested a small amount of diuretics an echocardiogram. In ED echocardiogram was obtained with results pending. I did place the patient small amount of Lasix with strict instructions to follow up with primary care provider. I offered to get the patient admitted, but the patient and his declined stating that they feel safer home than in the hospital at this point time. The patient is not hypoxic on his 4 L nasal cannula while at rest. I discussed at length pacing his activities, strict ret urn precautions and very strict follow-up with his primary care provider as well as his pipeline dispatch operator. Patient and have no questions or concerns upon discharge and state understanding of return precautions as well as follow-up care. The reiterated again that they did not want him to be admitted to the hospital today. <Caryn Khan MD - Last Filed: 10/03/19 11:17> Lab Data Labs: Lab Results 10/02/19 10/02/19 10/02/19 Range/Units 12:40 12:40 12:40 WBC 9.2 (4.5-11.0) X10^3/uL RBC 3.82 L (4.5-5.9) X10^6/uL Hgb 13.2 L (13.5-17.5) g/dL Hct 39.1 L (41-53) % MCV 102.3 H (80-100) fL MCH 34.6 H (26-34) PG MCHC 33.8 (30-36) % RDW 14.5 (11.6-14.8) % Plt Count 246 (150-400) X10^3/uL Neut % (Auto) 85.5 H (50-75) % Lymph % (Auto) 10.9 L (25-40) % [place] % (Auto) 3.2 (3-14) % Eos % (Auto) 0.0 L (2-4) % Baso % (Auto) 0.4 (0-2) % Neut # (Auto) 7800 H (5426-7384) /uL Lymph # (Auto) 1000 L (3186-2901) /uL [place] # (Auto) 300 (0-900) /uL Eos # (Auto) 0 (0-450) /uL Baso # (Auto) 0 (0-100) /uL PT 11.6 (10.1-12.7) SECONDS INR 1.0 (0.9-1.3) APTT 38 H D (26.4-36.2) SECONDS Sodium (137-145) mmol/L Potassium (3.4-5.1) mmol/L Chloride (98-107) mmol/L Carbon Dioxide (22-32) mmol/L BUN (9-20) mg/dL Creatinine (0.66-1.25) mg/dL Estimated GFR (>60) mL/min BUN/Creatinine Ratio (6-22) Glucose (80-110) mg/dL Lactate (0.7-2.1) mmol/L Calcium (8.4-10.2) mg/dL Magnesium (1.6-2.3) mg/dL Total Bilirubin (0.2-1.3) mg/dL AST (17-59) IU/L ALT (<50) IU/L Alkaline Phosphatase (38-126) U/L Total Creatine Kinase (55-170) U/L CK-MB (CK-2) CK-MB (CK-2) Rel Index Troponin I (0.01-0.034) ng/mL NT-Pro-B Natriuret Pep 161 (<450) pg/mL Total Protein (6.3-8.2) g/dL Albumin (3.5-5.0) g/dL Globulin (1.7-4.1) g/dL Albumin/Globulin Ratio (1.0-2.8) Procalcitonin (<0.5) ng/mL 10/02/19 10/02/19 10/02/19 Range/Units 12:40 12:40 12:40 WBC (4.5-11.0) X10^3/uL RBC (4.5-5.9) X10^6/uL Hgb (13.5-17.5) g/dL Hct (41-53) % MCV (80-100) fL MCH (26-34) PG MCHC (30-36) % RDW (11.6-14.8) % Plt Count (150-400) X10^3/uL Neut % (Auto) (50-75) % Lymph % (Auto) (25-40) % [place] % (Auto) (3-14) % Eos % (Auto) (2-4) % Baso % (Auto) (0-2) % Neut # (Auto) (6590-1296) /uL Lymph # (Auto) (2144-5270) /uL [place] # (Auto) (0-900) /uL Eos # (Auto) (0-450) /uL Baso # (Auto) (0-100) /uL PT (10.1-12.7) SECONDS INR (0.9-1.3) APTT (26.4-36.2) SECONDS Sodium 140 (137-145) mmol/L Potassium 4.4 (3.4-5.1) mmol/L Chloride 105 (98-107) mmol/L Carbon Dioxide 26 (22-32) mmol/L BUN 16 (9-20) mg/dL Creatinine 0.72 (0.66-1.25) mg/dL Estimated GFR > 60.0 (>60) mL/min BUN/Creatinine Ratio 22.2 H (6-22) Glucose 137 H (80-110) mg/dL Lactate 1.6 (0.7-2.1) mmol/L Calcium 9.4 (8.4-10.2) mg/dL Magnesium 2.3 (1.6-2.3) mg/dL Total Bilirubin 0.5 (0.2-1.3) mg/dL AST 40 (17-59) IU/L ALT 26 (<50) IU/L Alkaline Phosphatase 95 (38-126) U/L Total Creatine Kinase < 20 L (55-170) U/L CK-MB (CK-2) TNP CK-MB (CK-2) Rel Index TNP Troponin I < 0.012 (0.01-0.034) ng/mL NT-Pro-B Natriuret Pep (<450) pg/mL Total Protein 7.6 (6.3-8.2) g/dL Albumin 3.9 (3.5-5.0) g/dL Globulin 3.7 (1.7-4.1) g/dL Albumin/Globulin Ratio 1.1 (1.0-2.8) Procalcitonin < 0.05 (<0.5) ng/mL 10/02/19 Range/Units 16:40 WBC (4.5-11.0) X10^3/uL RBC (4.5-5.9) X10^6/uL Hgb (13.5-17.5) g/dL Hct (41-53) % MCV (80-100) fL MCH (26-34) PG MCHC (30-36) % RDW (11.6-14.8) % Plt Count (150-400) X10^3/uL Neut % (Auto) (50-75) % Lymph % (Auto) (25-40) % [place] % (Auto) (3-14) % Eos % (Auto) (2-4) % Baso % (Auto) (0-2) % Neut # (Auto) (3487-4811) /uL Lymph # (Auto) (5457-8833) /uL [place] # (Auto) (0-900) /uL Eos # (Auto) (0-450) /uL Baso # (Auto) (0-100) /uL PT (10.1-12.7) SECONDS INR (0.9-1.3) APTT (26.4-36.2) SECONDS Sodium (137-145) mmol/L Potassium (3.4-5.1) mmol/L Chloride (98-107) mmol/L Carbon Dioxide (22-32) mmol/L BUN (9-20) mg/dL Creatinine (0.66-1.25) mg/dL Estimated GFR (>60) mL/min BUN/Creatinine Ratio (6-22) Glucose (80-110) mg/dL Lactate (0.7-2.1) mmol/L Calcium (8.4-10.2) mg/dL Magnesium (1.6-2.3) mg/dL Total Bilirubin (0.2-1.3) mg/dL AST (17-59) IU/L ALT (<50) IU/L Alkaline Phosphatase (38-126) U/L Total Creatine Kinase < 20 L (55-170) U/L CK-MB (CK-2) TNP CK-MB (CK-2) Rel Index TNP Troponin I < 0.012 (0.01-0.034) ng/mL NT-Pro-B Natriuret Pep (<450) pg/mL Total Protein (6.3-8.2) g/dL Albumin (3.5-5.0) g/dL Globulin (1.7-4.1) g/dL Albumin/Globulin Ratio (1.0-2.8) Procalcitonin (<0.5) ng/mL Urine Dip Bedside Urine Glucose Negative Bedside Urine Bilirubin - Negative Bedside Urine Ketone - Negative Urine Specific [place] 1.015 Bedside Urine Occult Blood - Negative Bedside Urine pH 5.5 Bedside Urine Protein - Negative Bedside Urine Urobilinogen - Negative Bedside Urine Nitrite - Negative Bedside Urine Leukocytes - Negative Esterase Discharge Plan Departure Patient Disposition: Home Clinical Impression: Chronic dyspnea, Pulmonary fibrosis, Pedal edema Discharge Date/Time: 10/02/19 18:15 Instructions: Asbestosis, DI for Shortness of Breath, How to Manage Shortness of Breath Activity Restrictions/Additional Instructions: Thank you for trusting us with your care today. The CT scan of your lungs showed no evidence of pulmonary embolism. This is very reassuring given your history of clots. Please continue to take your Lovenox. Your echocardiogram has not resulted yet, but her primary care provider should be able to access the results. I have sent in a small dose of Lasix for you to take every day. [facility] Please remember to pace your activity very carefully. Please use your home oxygen. Please come back to the emergency department for any acute concerns. As I discussed you have declined admission today, but if you feel worse at any point or are acutely concerned please come back to the emergency department. 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 Prescriptions: New furosemide 20 mg tablet 20 mg PO DAILY Qty: 7 RF: 0 No Action acetaminophen 325 mg capsule 650 mg PO Q6H PRN (Reason: pain) Qty: 30 RF: 0 albuterol sulfate 90 mcg/actuation HFA aerosol inhaler 2 puff INHALATION Q4-6H PRN (Reason: shortness of breath or wheezing) Qty: 18 RF: 0 loratadine [Claritin] 10 mg tablet 10 mg PO DAILY PRN (Reason: allergy symptoms) Qty: 30 RF: 0 fluorouracil 2.5 gram/50 mL Solution 5,300 mg IV NOW Qty: 1 RF: 0 ondansetron 8 mg Tablet,Disintegrating 8 mg PO Q8H Qty: 30 RF: 3 hydrocodone-acetaminophen 5-325 mg Tablet 1 tab PO Q6H PRN (Reason: rectal cancer, pain) Qty: 30 RF: 0 capecitabine 500 mg Tablet 1,500 mg PO BID Qty: 180 RF: 0 capecitabine 150 mg Tablet 300 mg PO BID Qty: 120 RF: 0 Referrals: Maciel Flores MD [Primary Care Provider] -
[2019-10-02 12:57] LABS: Add Manual Diff / Slide Review NO; Basophils Absolute Auto 0 /uL (0-100); Basophils Percent Auto 0.4 % (0-2); Eosinophils Absolute Auto 0 /uL (0-450); Hematocrit 39.1 % (41-53); Hemoglobin 13.2 g/dL (13.5-17.5); Lymphocytes Absolute Auto 1000 /uL (1100-4500); Lymphocytes Percent Auto 10.9 % (25-40); Mean Corpuscular HGB Conc 33.8 % (30-36); Mean Corpuscular Hemoglobin 34.6 PG (26-34); Mean Corpuscular Volume 102.3 fL (80-100); Monocytes Absolute Auto 300 /uL (0-900); Monocytes Percent Auto 3.2 % (3-14); Neutrophils Absolute Auto 7800 /uL (1500-7000); Neutrophils Percent Auto 85.5 % (50-75); Platelet Count 246 X10^3/uL (150-400); Red Blood Cell Count 3.82 X10^6/uL (4.5-5.9); Red Cell Distribution Width 14.5 % (11.6-14.8); White Blood Cell Count 9.2 X10^3/uL (4.5-11.0)
[2019-10-02 13:05] LABS: Prothrombin Time 11.6 SECONDS (10.1-12.7)
[2019-10-02 13:08] LABS: PTT Partial Thromboplastin Tim 38 SECONDS (26.4-36.2)
[2019-10-02 13:14] LABS: Lactate (Lactic Acid) 1.6 mmol/L (0.7-2.1)
[2019-10-02 13:16] LABS: Alanine Aminotransferase 26 IU/L (<50); Albumin 3.9 g/dL (3.5-5.0); Albumin Globulin Ratio 1.1 (1.0-2.8); Alkaline Phosphatase 95 U/L (38-126); Aspartate Aminotransferase 40 IU/L (17-59); BUN Creatinine Ratio 22.2 (6-22); Bilirubin Total 0.5 mg/dL (0.2-1.3); Blood Urea Nitrogen 16 mg/dL (9-20); Calcium 9.4 mg/dL (8.4-10.2); Carbon Dioxide 26 mmol/L (22-32); Chloride 105 mmol/L (98-107); Creatine Kinase < 20 U/L (55-170); Estimated Glomerular Filt Rate > 60.0 mL/min (>60); Globulin 3.7 g/dL (1.7-4.1); Glucose 137 mg/dL (80-110); HEMOLYSIS < 15 (0-50); Magnesium 2.3 mg/dL (1.6-2.3); Potassium 4.4 mmol/L (3.4-5.1); Sodium 140 mmol/L (137-145); Total Protein 7.6 g/dL (6.3-8.2)
[2019-10-02 13:27] LABS: Troponin I < 0.012 ng/mL (0.01-0.034)
[2019-10-02 13:28] LABS: Procalcitonin < 0.05 ng/mL (<0.5)
[2019-10-02 13:31] LABS: NT-proBNP (BNP-Adult 18+) 161 pg/mL (<450)
--- NOTE | 2019-10-02 13:59 | DI.CT.S_ITS ---
PROCEDURE: CT ANGIO CHEST PE PROTOCOL INDICATIONS: sob, hypoxic TECHNIQUE: After the administration of intravenous contrast, 2 mm thick sections acquired from the pulmonary apices to the posterior costophrenic angles. 3-dimensional maximum intensity projection (MIP) coronal and sagittal reformats were then acquired through the thorax. For radiation dose reduction, the following was used: automated exposure control, adjustment of mA and/or kV according to patient size. COMPARISON: [facility], CT, CT ANGIO CHEST PE PROTOCOL, 06/04/2019, 12:52. FINDINGS: Image quality: Excellent. Pulmonary arteries: Pulmonary arteries are normal in size, and demonstrate no intraluminal filling defects to suggest central pulmonary embolism. Lungs and pleura: The severe honeycombing fibrosis is present bilaterally most confluent within the lung bases. There are focal regions of groundglass opacities with crazy paving predominantly within the right upper lung. No focal airspace consolidation. No pleural effusions or pneumothorax. Mediastinum: Heart size is normal, without pericardial effusion. No mediastinal or hilar adenopathy. Thoracic aorta is normal in caliber and enhancement. Esophagus is normal in caliber, without hiatal hernia. Bones and chest wall: No suspicious bony lesions. Ribs and thoracic spine appear intact throughout. Thyroid gland is unremarkable. No axillary or supraclavicular adenopathy. Abdomen: The liver demonstrates surface nodularity consistent with cirrhosis. Visualized upper abdominal solid organs appear normal in the early arterial phase of enhancement. IMPRESSION: 1. No acute pulmonary embolus. 2. Severe honeycombing fibrosis as above. 3. Crazy paving groundglass opacities within the right upper lobe. Differential considerations include ARDS, bacterial pneumonia, acute interstitial pneumonia, and rarely, pulmonary alveolar proteinosis. Dictated by: Yi Mitchell M.D. on 10/02/2019 at 14:18 Approved by: Yi Mitchell M.D. on 10/02/2019 at 14:40
--- NOTE | 2019-10-02 15:23 | DI.ECHO.S_ITS ---
[facility] +---------+ : : [address] : [place] [address] : : : : [id number] : : : : Phone: [phone]+ Echocardiogram Report + + :Name: JIAN YBARRA Study Date: 10/02/2019 Height: 73 in : :[facility] Weight: 227 lb : : Gender: Male BSA: 2.3 m2 : :: 1940 Age: 79 yrs BP: 121/70 mmHg: :Reason For Study: sob, edema : :Ordering Physician: Andres : :Hospitalist Performed By: Angélica Boyd : :Referring: EULALIA ROWE : + + Interpretation Summary This is a limited echo for evaluation of wall motion and RV systolic function. This was a technically difficult study, and Definity echocontrast was used. Normal sinus rhythm. Normal LV size and wall thickness. Normal wall motion and LV systolic function. EF is 60-65%. No significant valvular abnormalities. Grossly normal chamber sizes. Estimated PA systolic pressure is 22 mm hg assuming RA pressure of 3 mm Hg. No prior study available for comparison. Procedure: The study quality was technically adequate. A contrast injection of Definity was performed to improve assessment of LV function. A two- dimensional transthoracic echocardiogram with color flow and Doppler was performed in limited views only. The patient was in normal sinus rhythm during the exam. Left Ventricle: The left ventricle is normal in size and wall thickness. The ejection fraction is estimated to be 60-65%. Right Ventricle: The right ventricle is normal size. The right ventricular systolic function is normal. Atria: Both atria are normal in size. Tricuspid Valve: The tricuspid valve is normal in structure and function. There is a trace or physiologic amount of tricuspid regurgitation. The right ventricular systolic pressure is estimated to be at least 22 mmHg based on an estimated right atrial pressure of 3 mm Hg. Great Vessels: The IVC is of normal diameter and collapses greater than 50% with a sniff. This suggests a low right atrial pressure of 3 mm Hg. Pericardium/ Pleura There is no pericardial effusion. There has been no significant change since the previous study. MMode/2D Measurements & Calculations LVIDd: 4.4 cm LA A2 area: 23.0 cm2 LVIDs: 2.9 cm LA A4 area: 15.1 cm2 FS: 34.9 % LA length (vol): 4.5 cm IVSd: 0.94 cm LA vol: 66.3 ml LVPWd: 1.2 cm LA vol index: 29.2 ml/m2 LV moore. diameter/BSA (cm/m^2): 1.9 LV sys. diameter/BSA (cm/m^2): 1.3 RA long axis: 4.9 cm RVD1 (basal): 3.8 cm RA area: 16.1 cm2 TAPSE: 1.6 cm RA vol: 44.8 ml RA : 19.7 ml/m2 IVC diam: 1.8 cm Doppler Measurements & Calculations TR max harmony: 217.7 cm/sec TR max P.0 mmHg PA V2 max: 66.8 cm/sec PA V2 mean: 46.1 cm/sec PA mean P.98 mmHg PA pr(Accel): 30.7 mmHg PA Accel Time: 0.11 sec Electronically signed by: Kati Hu M.D. on Reading Physician:10/03/2019 06:46 AM
[2019-10-02 16:56] LABS: Creatine Kinase < 20 U/L (55-170)
[2019-10-02 17:09] LABS: Troponin I < 0.012 ng/mL (0.01-0.034)
[2019-10-02] MEDS: FUROSEMIDE 40 MG/4 ML VIAL IV (17:29)
== END 2019-10-02 18:15 | disposition home or self-care (01) ==
PROVIDERS: Emergency Provider Nurse Practitioner Family; Family Provider Family Medicine; PCP Family Medicine
DX: R06.09 Other forms of dyspnea (principal); J84.10 Pulmonary fibrosis, unspecified; R60.9 Edema, unspecified; J61 Pneumoconiosis due to asbestos and other mineral fibers; C20 Malignant neoplasm of rectum
CPT/HCPCS: 36415; 71045; 71275; 80053; 81003; 82550; 83605; 83735; 83880; 84145; 84484; 85025; 85610; 85730; 87040; 93307; 96374; 99285; J1940; Q9957; Q9967

== ENCOUNTER → 2019-10-18 15:40 | Oncology outpatient (ONC) | payer MEDICARE, OTHER, SELFPAY ==
[2019-01-23 15:18] VITALS: BP 118/68; PULSE 82; RESP 18; TEMP 36.7; O2SAT 97
--- NOTE | 2019-01-23 16:16 | P.CONONC_ITS ---
History of Present Illness - Data of Consult Consult date: 01/23/19 Primary Care Provider: Maciel Flores MD - Consult Narrative Narrative: Diagnosis: Rectal cancer, T4 N2 History of present illness: Ian Butcher is a 78 year old male who is referred for therapy for newly diagnosed rectal cancer. The patient reports that he was feeling quite well and had no symptoms. He had a history of ulcerative colitis and because of that had been having regular colonoscopies. On his most recent 1, he was found to have a mass about 5-6 cm from the anal verge. Biopsy confirmed adenocarcinoma. Mismatch repair was normal. He underwent staging evaluation that showed no evidence of metastatic disease. He did have some tiny pulmonary nodules that had been stable. He has been evaluated at [facility] and they recommended neoadjuvant chemotherapy followed by chemo radiation with protons followed by surgery is the last step of his treatment. He prefers to receive his chemotherapy closer to home if possible. Today, he is feeling quite well. He has no pain. His appetite has been good. He has been cutting back on his portion size and exercising more and has lost about 60 lb over the last 18 months. He has been walking about 5 miles a day. He is not having any rectal pain. He has not noticed any blood in the stool. No fevers chills or sweats. He has not noted any adenopathy. No shortness of breath or cough. He is otherwise without complaint. His past medical history is otherwise notable for ulcerative colitis. He has a history of prostate cancer treated with seeds. He has had several fractures. He does have a history of asbestos exposure. Social history: He is . 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 He has a distant history of tobacco but quit many years ago. He does have 1 or 2 drinks of scotch per week. His family history is notable his mother possibly having it cancer although he is not sure of the details. There is no other family history of malignancy. He is not on any prescription medications but is taking some iron. CC: Bakari Guy MD Home Medications and Allergies Home Medications Medication Instructions Recorded Confirmed Type ascorbic acid (vitamin C) [Vitamin 500 mg PO DAILY 01/23/19 01/23/19 History C] ferrous sulfate [iron] 325 mg DAILY 01/23/19 01/23/19 History fluorouracil 5,300 mg IV NOW #1 device 01/23/19 Rx ondansetron 8 mg PO Q8H #30 tab 01/23/19 Rx Allergies Allergy/AdvReac Type Severity Reaction Status Date / Time No Known Drug Allergies Allergy Verified 11/15/18 11:19 Medical History - Medical, Surgical, Family History Surgical History: Surgical History (Updated 11/14/18 @ 16:55 by Angelica Turcios RN) History of colonoscopy Review of Systems Constitutional: weight loss, normal activity level Cardiovascular: no chest pain, no dyspnea on exertion Respiratory: no shortness of breath Gastrointestinal: no abdominal pain, no diarrhea, no change in bowel habits Exam Vital signs: Vital Signs Temp Pulse Resp BP Pulse Ox 01/23/19 15:18 98.1 F 82 18 118/68 97 Intake and Output 01/23/19 01/23/19 01/23/19 07:59 15:59 23:59 Other: Weight 97.2 kg Patient Weight 01/23/19 23:59 Weight 97.2 kg - Constitutional positive no acute distress, positive average body habitus - Routine HEENT Exam Head: Present: normocephalic, atraumatic Eye: Present: EOMI, PERRL. Absent: conjunctival icterus, scleral injection ENT: Present: mucous membranes moist, oropharynx clear - Routine Neck Exam Present: supple. Absent: lymphadenopathy, thyromegaly - Routine Chest/Breast/Axilla Exam Axillae: Absent: lymphadenopathy - Routine Respiratory Exam Present: Clear to auscultation bilaterally, rales Comments: He has some dry sounding crackles at the both bases. - Routine Cardiovascular Exam Present: RRR, S1, S2. Absent: murmur - Routine Abdominal Exam Present: soft, normoactive bowel sounds. Absent: tenderness, organomegaly, mass - Routine Extremities Exam Absent: cyanosis, clubbing, edema - Routine Back/Spine Exam Back/Spine: Absent: paraspinal tenderness, vertebral tenderness - Routine Skin Exam Present: intact. Absent: petechiae, rash - Routine Neurological Exam Present: alert, oriented X3 - Routine Psychiatric Exam Present: normal affect, normal thought process Results - Imaging Additional studies: Procedures Colonoscopy (01/14/12) Assessment and Plan (1) Rectal cancer Current visit: Yes Status: Acute 78-year-old man otherwise quite healthy with a new diagnosis of rectal cancer. He has a locally advanced tumor in a prior history of radiation to the prostate. He will start with neoadjuvant chemotherapy. I described the regimen of FOLFOX given intravenously every 2 weeks over 2 days. Side effects would include a low risk for alopecia. There is some risk for nausea and vomiting, changes in taste and appetite, fatigue, cytopenias, neuropathy. There is also risk for mucositis and diarrhea. He is anxious to get started as soon as he can. We will plan on having a port placed the beginning as soon as possible. We will plan on treating for 6 cycles. He will then need to return to [facility] for proton radiation. This could be given with IV 5 FU or with Xeloda.
--- NOTE | 2019-01-24 16:24 | PC.NURSE ---
[facility] notified patient will start mFOLFOX and will need 5FU pump. Cody Hirsch RPh
--- NOTE | 2019-01-24 16:25 | ONC.SCHED ---
Called patient to try to schedule chemo teaching but may have to wait until port is placed. Patient has consult for port placement on 01/31/19 at [facility]. I will make a note to follow up on February 01 to see if he has a date for the port placement so we can get him scheduled.
--- NOTE | 2019-01-25 09:57 | ONC.SCHED ---
Patient has a consult apt with DR. Godinez at [facility] for a port placement. I don't know the date of the port placement until after the consult. I will have to follow up with patient regarding scheduling chemo teaching and follow up with chemo. It will depend of the surgery date available.
--- NOTE | 2019-01-31 16:00 | ONC.SCHED ---
I left a message for this patient to call back regarding his schedule. I made a change for one of his treatment days. I changed him from 02/14 to 02/[address] Guy, he doesn?t need to see the patient that day (he?s booked up) unless the patient has questions. He will be here in the office if the patient has a need for questions. This patient is scheduled for port 02/06 and chemo teaching 02/08 which he will have a lot of his questions answered at the chemo teaching. Feel free to transfer the call to me but just in case you guys get the call and I?m at lunch or something. I will also make a note in his chart.
[2019-02-13 09:13] LABS: Add Manual Diff / Slide Review NO; Basophils Absolute Auto 0 /uL (0-100); Basophils Percent Auto 0.5 % (0-2); Eosinophils Absolute Auto 200 /uL (0-450); Eosinophils Percent Auto 3.3 % (2-4); Hemoglobin 12.3 g/dL (13.5-17.5); Lymphocytes Absolute Auto 2000 /uL (1100-4500); Lymphocytes Percent Auto 26.8 % (25-40); Mean Corpuscular HGB Conc 33.3 % (30-36); Mean Corpuscular Hemoglobin 30.3 PG (26-34); Mean Corpuscular Volume 90.9 fL (80-100); Monocytes Absolute Auto 800 /uL (0-900); Monocytes Percent Auto 10.4 % (3-14); Neutrophils Absolute Auto 4400 /uL (1500-7000); Platelet Count 202 X10^3/uL (150-400); Red Blood Cell Count 4.07 X10^6/uL (4.5-5.9); Red Cell Distribution Width 13.1 % (11.6-14.8); White Blood Cell Count 7.4 X10^3/uL (4.5-11.0)
[2019-02-13 09:33] LABS: Alanine Aminotransferase 11 IU/L (21-72); Albumin Globulin Ratio 1.3 (1.0-2.8); Alkaline Phosphatase 79 U/L (38-126); Aspartate Aminotransferase 25 IU/L (17-59); BUN Creatinine Ratio 22.9 (6-22); Bilirubin Total 0.4 mg/dL (0.2-1.3); Blood Urea Nitrogen 16 mg/dL (9-20); Calcium 9.4 mg/dL (8.4-10.2); Carbon Dioxide 28 mmol/L (22-32); Chloride 103 mmol/L (98-107); Estimated Glomerular Filt Rate > 60.0 mL/min (>60); Globulin 3.2 g/dL (1.7-4.1); Glucose 95 mg/dL (80-110); HEMOLYSIS < 15 (0-50); Potassium 4.2 mmol/L (3.4-5.1); Sodium 140 mmol/L (137-145); Total Protein 7.2 g/dL (6.3-8.2)
[2019-02-13] MEDS: ONDANSETRON 16 MG in SODIUM CHLORIDE 0.9% 50 ML 232 ML IV (10:21)
[2019-02-13 10:41] VITALS: BP 120/69; PULSE 64; RESP 16; TEMP 36.4
[2019-02-13] MEDS: DEXTROSE 5 % IN WATER 100 ML 21 ML IV (10:45)
[2019-02-13] MEDS: DEXTROSE 5% IV ×2 (11:09→11:10)
[2019-02-13] MEDS: LEUCOVORIN IV (11:09)
[2019-02-13] MEDS: OXALIPLATIN IV (11:10)
[2019-02-13] MEDS: FLUOROURACIL IV (14:02)
[2019-02-13] MEDS: ISOOSMOTIC VEHICLE IV (14:02)
--- NOTE | 2019-02-13 14:45 | PC.NURSE ---
CADD pump settings verified with 2nd RN Leena. Blood return confirmed to port. Equa shield in place. Clear dressing CDI. Pump infusing w/o difficulty, green light flashing.
--- NOTE | 2019-02-15 10:39 | PC.NURSE ---
Addendum entered by Shanice Nathan R.N. 02/15/19 10:47: This chemotherapy teaching was done on 02/08/19 with patient and his . Original Note: Chemotherapy Education: Pt provided written information on all topics discussed. Written materials printed from [email or web address] for his chemo regime. Pt was given an overview of cancer and mechanism of action of cancer cells, that cancer is caused by cells that are dividing rapidly, and out of control. Traditional chemotherapy works by targeting the fast dividing cells and killing them. Chemotherapy affecting healthy cells dividing quickly causes many of the side effects (hair follicles, bone marrow, mucus membranes). Overview of blood cell functions of white cells to fight infection, red cells to carry oxygen, and platelets to stop bleeding was discussed, and that when bone marrow is affected by chemo, there is a decrease in production of these cells. Home care of the patient following chemotherapy was discussed. Body fluids will be contaminated for 48 hours following treatment, and any body fluids handled by caregivers should be handled wearing gloves, surfaces need to be cleaned with soap and water, any soiled linens or clothing need to be washed separately in hot water, toilet lid should be closed when flushing, person cleaning the toilet should wear gloves. How chemotherapy is administered by the RN?s in the clinic, that orders are double checked by pharmacy and checked again by two RN?s prior to administration. Nurses wear protective gear to prevent exposure to them of the chemotherapy agents which can also cause cancer. Cancer center information discussed and written hand out provided listing on-call oncologist available weekends and after hours triage R.N. hours and infusion room guide. New patient folder given to pt, which includes clinic names, phone numbers, clinic information, calendar, cancer glossary, and list of resources. Handout on advanced directives Common side effects of chemotherapy were discussed with self care tips for prevention of complications. Information also provided in writing. These included: Low blood counts (anemia, thrombocytopenia, neutropenia) Hair loss (alopecia) Nausea and vomiting Decreased appetite Loss of fertility Diarrhea Mouth sores Constipation Peripheral neuropathy Chemo brain/cognitive changes Fatigue Instructions on when to call your healthcare team or on-call physician immediately: Fever of 100.4 or higher, chills, any signs of infection Shortness of breath, wheezing, difficulty breathing, closing of throat, swelling of face, hives (signs of possible allergic reaction) Chest pain, fast heart beat or feelings of a different heart rhythm Swelling of an extremity with or without pain signs of stroke Instructions on when to call your healthcare team within the next 24 hours Nausea that interferes with ability to eat and unrelieved with prescribed medication Diarrhea (4-6 episodes in 24 hour period). Unusual bleeding or bruising Black or tarry stools, or blood in your stools Blood in the urine pain or burning with urination Extreme fatigue (unable to perform self-care activities) Mouth sores or sore areas in your mouth Bad headache Dizziness or lightheadedness Large weight gain over a short period of time General self-care tips while undergoing treatment discussed were as follows. Written materials were provided covering in detail and additional self care tips. Drink at least 2-3 quarts (8-10 glasses) of no-caffeinated beverages daily unless you are instructed otherwise and empty your bladder frequently Report any concerning symptoms to your healthcare team Avoid crowds and sick people, wash your hands frequently Use a soft bristled toothbrush, rinse three times a day with 1 tsp baking soda or 1 tsp salt mixed with warm water Avoid any mouthwashes or oral and skin products containing alcohol or fragrances Use electric razors to avoid cutting yourself Avoid contact sports or activities that could cause head injury or bleeding Avoid sun exposure, wear SPF 15 or higher, wear protective clothing Get plenty of rest, meter your activities Maintain good nutrition Avoid alcoholic beverages Attend your scheduled appointments and lab draws Treatment regimen reviewed and medications were discussed with attention to specific side effects and self care for the pt?s treatment regimen. Pt encouraged to keep a list of questions that may arise after this teaching session and bring back to next clinic visit to address. All pt's questions answered at this time. Pt verbalizes understanding of treatment plan. Patient signed chemo treatment consent form.
[2019-02-15 13:11] VITALS: BP 113/69; PULSE 78; RESP 16; TEMP 36.5; O2SAT 96
--- NOTE | 2019-02-15 13:12 | PC.NURSE ---
pump disconnect, pt tolerated well.
[2019-02-20 15:28] LABS: Add Manual Diff / Slide Review NO; Basophils Absolute Auto 0 /uL (0-100); Basophils Percent Auto 0.5 % (0-2); Eosinophils Absolute Auto 500 /uL (0-450); Eosinophils Percent Auto 6.4 % (2-4); Hematocrit 36.3 % (41-53); Hemoglobin 12.3 g/dL (13.5-17.5); Lymphocytes Absolute Auto 2700 /uL (1100-4500); Lymphocytes Percent Auto 37.5 % (25-40); Mean Corpuscular Hemoglobin 30.6 PG (26-34); Mean Corpuscular Volume 90.1 fL (80-100); Monocytes Absolute Auto 800 /uL (0-900); Monocytes Percent Auto 10.5 % (3-14); Neutrophils Absolute Auto 3300 /uL (1500-7000); Neutrophils Percent Auto 45.1 % (50-75); Platelet Count 184 X10^3/uL (150-400); Red Blood Cell Count 4.02 X10^6/uL (4.5-5.9); Red Cell Distribution Width 13.2 % (11.6-14.8); White Blood Cell Count 7.2 X10^3/uL (4.5-11.0)
[2019-02-20 15:43] LABS: Alanine Aminotransferase 17 IU/L (21-72); Albumin Globulin Ratio 1.3 (1.0-2.8); Alkaline Phosphatase 68 U/L (38-126); Aspartate Aminotransferase 27 IU/L (17-59); BUN Creatinine Ratio 18.8 (6-22); Bilirubin Total 0.4 mg/dL (0.2-1.3); Blood Urea Nitrogen 15 mg/dL (9-20); Calcium 8.7 mg/dL (8.4-10.2); Carbon Dioxide 26 mmol/L (22-32); Chloride 103 mmol/L (98-107); Estimated Glomerular Filt Rate > 60.0 mL/min (>60); Globulin 3.1 g/dL (1.7-4.1); Glucose 102 mg/dL (80-110); HEMOLYSIS < 15 (0-50); Potassium 4.1 mmol/L (3.4-5.1); Sodium 139 mmol/L (137-145); Total Protein 7.1 g/dL (6.3-8.2)
[2019-02-27 09:47] VITALS: BP 113/64; PULSE 80; RESP 16; TEMP 36.6; O2SAT 97
[2019-02-27] MEDS: ALTEPLASE 2 MG/2 ML VIAL IV ×2 (09:48→11:16)
[2019-02-27 10:02] LABS: Add Manual Diff / Slide Review NO; Basophils Absolute Auto 0 /uL (0-100); Basophils Percent Auto 0.3 % (0-2); Eosinophils Absolute Auto 300 /uL (0-450); Eosinophils Percent Auto 3.9 % (2-4); Hematocrit 39.3 % (41-53); Hemoglobin 13.1 g/dL (13.5-17.5); Lymphocytes Absolute Auto 2400 /uL (1100-4500); Lymphocytes Percent Auto 37.5 % (25-40); Mean Corpuscular HGB Conc 33.2 % (30-36); Mean Corpuscular Hemoglobin 30.4 PG (26-34); Mean Corpuscular Volume 91.3 fL (80-100); Monocytes Absolute Auto 700 /uL (0-900); Monocytes Percent Auto 11.4 % (3-14); Neutrophils Absolute Auto 3000 /uL (1500-7000); Neutrophils Percent Auto 46.9 % (50-75); Platelet Count 146 X10^3/uL (150-400); Red Blood Cell Count 4.31 X10^6/uL (4.5-5.9); Red Cell Distribution Width 13.5 % (11.6-14.8); White Blood Cell Count 6.4 X10^3/uL (4.5-11.0)
--- NOTE | 2019-02-27 10:06 | ONC.PN ---
PN -Subjective Interval history: Diagnosis: Rectal cancer, T4 N2 Previous treatment: 1. One cycle of neoadjuvant FOLFOX Interval history: The patient is a 78-year-old man who returns today for follow-up. He has recently been found to have a locally advanced rectal cancer. He is being treated with total neoadjuvant therapy. He started his chemotherapy 2 weeks ago. He tolerated the 1st cycle quite well. He did not have any nausea or vomiting. His appetite has been good. He had 1 or 2 days of loose stool and then normal bowel movements. He is not having any rectal pain or bleeding. He had some urinary hesitancy immediately following his chemotherapy. He did take some Flomax which helped. He did have some fatigue but is in able to the eat keep up his activity level and is walking at least 2 miles a day. He has had some cold sensitivity in the mouth but not in the hands or feet. He denies any other changes in his health. is past medical history is otherwise notable for ulcerative colitis. He has a history of prostate cancer treated with seeds. He has had several fractures. He does have a history of asbestos exposure. - Patient Self-Reported Symptoms SR Constitution: Fatigue/Malaise Home Medications and Allergies Home Medications Medication Instructions Recorded Confirmed Type ascorbic acid (vitamin C) [Vitamin 500 mg PO DAILY 01/23/19 02/27/19 History C] ferrous sulfate [iron] 325 mg PO DAILY 01/23/19 02/27/19 History fluorouracil 5,300 mg IV NOW #1 device 01/23/19 02/27/19 Rx acetaminophen 650 mg PO Q6H PRN #30 cap 02/06/19 02/27/19 Rx ondansetron 8 mg PO Q8H #30 tab 02/13/19 02/27/19 Rx Allergies Allergy/AdvReac Type Severity Reaction Status Date / Time No Known Drug Allergies Allergy Verified 02/06/19 11:51 Exam Vital signs: Vital Signs Temp Pulse Resp BP Pulse Ox 02/27/19 09:47 97.8 F 80 16 113/64 97 Intake and Output 02/26/19 02/27/19 02/27/19 23:59 07:59 15:59 Other: Weight 97 kg Patient Weight 02/27/19 23:59 Weight 97 kg - Constitutional positive no acute distress, positive average body habitus - Routine HEENT Exam Head: Present: normocephalic, atraumatic Eye: Present: EOMI. Absent: conjunctival icterus, scleral injection ENT: Present: mucous membranes moist, oropharynx clear - Routine Neck Exam Present: supple. Absent: lymphadenopathy, thyromegaly - Routine Respiratory Exam Present: Clear to auscultation bilaterally. Absent: rales, wheezes - Routine Cardiovascular Exam Present: RRR, S1, S2. Absent: murmur - Routine Abdominal Exam Present: soft, normoactive bowel sounds. Absent: tenderness, organomegaly, mass - Routine Extremities Exam Absent: cyanosis, clubbing, edema - Routine Skin Exam Present: intact. Absent: petechiae, rash - Routine Neurological Exam Present: alert, oriented X3 - Routine Psychiatric Exam Present: normal affect, normal thought process Results - Labs Laboratory Last Values WBC 6.4 X10^3/uL (4.5-11.0) 02/27/19 09:35 RBC 4.31 X10^6/uL (4.5-5.9) L 02/27/19 09:35 Hgb 13.1 g/dL (13.5-17.5) L 02/27/19 09:35 Hct 39.3 % (41-53) L 02/27/19 09:35 MCV 91.3 fL (80-100) 02/27/19 09:35 MCH 30.4 PG (26-34) 02/27/19 09:35 MCHC 33.2 % (30-36) 02/27/19 09:35 RDW 13.5 % (11.6-14.8) 02/27/19 09:35 Plt Count 146 X10^3/uL (150-400) L 02/27/19 09:35 Neut % (Auto) 46.9 % (50-75) L 02/27/19 09:35 Lymph % (Auto) 37.5 % (25-40) 02/27/19 09:35 [place] % (Auto) 11.4 % (3-14) 02/27/19 09:35 Eos % (Auto) 3.9 % (2-4) 02/27/19 09:35 Baso % (Auto) 0.3 % (0-2) 02/27/19 09:35 Neut # (Auto) 3000 /uL ([id number]) 02/27/19 09:35 Lymph # (Auto) 2400 /uL ([id number]) 02/27/19 09:35 [place] # (Auto) 700 /uL (0-900) 02/27/19 09:35 Eos # (Auto) 300 /uL (0-450) 02/27/19 09:35 Baso # (Auto) 0 /uL (0-100) 02/27/19 09:35 Sodium 139 mmol/L (137-145) 02/20/19 15:15 Potassium 4.1 mmol/L (3.4-5.1) 02/20/19 15:15 Chloride 103 mmol/L (98-107) 02/20/19 15:15 Carbon Dioxide 26 mmol/L (22-32) 02/20/19 15:15 BUN 15 mg/dL (9-20) 02/20/19 15:15 Creatinine 0.80 mg/dL (0.66-1.25) 02/20/19 15:15 Estimated GFR > 60.0 mL/min (>60) 02/20/19 15:15 BUN/Creatinine Ratio 18.8 (6-22) 02/20/19 15:15 Glucose 102 mg/dL (80-110) 02/20/19 15:15 Calcium 8.7 mg/dL (8.4-10.2) 02/20/19 15:15 Total Bilirubin 0.4 mg/dL (0.2-1.3) 02/20/19 15:15 AST 27 IU/L (17-59) 02/20/19 15:15 ALT 17 IU/L (21-72) L 02/20/19 15:15 Alkaline Phosphatase 68 U/L (38-126) 02/20/19 15:15 Total Protein 7.1 g/dL (6.3-8.2) 02/20/19 15:15 Albumin 4.0 g/dL (3.5-5.0) 02/20/19 15:15 Globulin 3.1 g/dL (1.7-4.1) 02/20/19 15:15 Albumin/Globulin Ratio 1.3 (1.0-2.8) 02/20/19 15:15 - Imaging Additional studies: Procedures Colonoscopy (01/14/12) Assessment and Plan (1) Rectal cancer Current visit: Yes Status: Acute 78-year-old man otherwise quite healthy with a new diagnosis of rectal cancer. He has a locally advanced tumor in a prior history of radiation to the prostate. He will start with neoadjuvant chemotherapy. I described the regimen of FOLFOX given intravenously every 2 weeks over 2 days. Side effects would include a low risk for alopecia. There is some risk for nausea and vomiting, changes in taste and appetite, fatigue, cytopenias, neuropathy. There is also risk for mucositis and diarrhea. He is anxious to get started as soon as he can. We will plan on having a port placed the beginning as soon as possible. We will plan on treating for 6 cycles. He will then need to return to [place] for proton radiation. This could be given with IV 5 FU or with Xeloda.
[2019-02-27 10:13] LABS: Alanine Aminotransferase 21 IU/L (21-72); Albumin 4.2 g/dL (3.5-5.0); Albumin Globulin Ratio 1.3 (1.0-2.8); Alkaline Phosphatase 88 U/L (38-126); Aspartate Aminotransferase 30 IU/L (17-59); Bilirubin Total 0.5 mg/dL (0.2-1.3); Blood Urea Nitrogen 16 mg/dL (9-20); Calcium 9.4 mg/dL (8.4-10.2); Carbon Dioxide 30 mmol/L (22-32); Chloride 101 mmol/L (98-107); Estimated Glomerular Filt Rate > 60.0 mL/min (>60); Globulin 3.2 g/dL (1.7-4.1); Glucose 105 mg/dL (80-110); HEMOLYSIS < 15 (0-50); Potassium 4.2 mmol/L (3.4-5.1); Sodium 141 mmol/L (137-145); Total Protein 7.4 g/dL (6.3-8.2)
[2019-02-27] MEDS: ONDANSETRON 16 MG in SODIUM CHLORIDE 0.9% 50 ML 232 ML IV (12:27)
[2019-02-27] MEDS: DEXTROSE 5 % IN WATER 100 ML 21 ML IV (13:01)
[2019-02-27] MEDS: OXALIPLATIN IV (13:02)
[2019-02-27] MEDS: DEXTROSE 5% IV ×2 (13:02)
[2019-02-27] MEDS: LEUCOVORIN IV (13:02)
[2019-02-27] MEDS: FLUOROURACIL IV (15:32)
[2019-02-27] MEDS: ISOOSMOTIC VEHICLE IV (15:32)
--- NOTE | 2019-02-27 16:08 | PC.NURSE ---
Patient home with 5FU pump today. Pump settings verified with second Rn aDniela Cavazos RN. Pump setting verified with patient and green light visualized by this RN, the patient and Daniela Cavazos RN. Patient tolerated treatment today well and is happy to be going home.
[2019-03-01 14:47] VITALS: BP 107/72; PULSE 67; RESP 16; TEMP 36.7; O2SAT 97
--- NOTE | 2019-03-01 14:48 | PC.NURSE ---
Pt CADD pump disconnect. VSS, pt tolerated well.
[2019-03-07] MEDS: ALTEPLASE 2 MG/2 ML VIAL IV (13:29)
[2019-03-07 14:17] LABS: Add Manual Diff / Slide Review NO; Basophils Absolute Auto 0 /uL (0-100); Basophils Percent Auto 0.5 % (0-2); Eosinophils Absolute Auto 400 /uL (0-450); Eosinophils Percent Auto 6.8 % (2-4); Hematocrit 36.3 % (41-53); Hemoglobin 12.4 g/dL (13.5-17.5); Lymphocytes Absolute Auto 2500 /uL (1100-4500); Lymphocytes Percent Auto 45.8 % (25-40); Mean Corpuscular HGB Conc 34.2 % (30-36); Mean Corpuscular Hemoglobin 30.8 PG (26-34); Mean Corpuscular Volume 89.9 fL (80-100); Monocytes Absolute Auto 700 /uL (0-900); Monocytes Percent Auto 12.9 % (3-14); Neutrophils Absolute Auto 1900 /uL (1500-7000); Platelet Count 107 X10^3/uL (150-400); Red Blood Cell Count 4.04 X10^6/uL (4.5-5.9); Red Cell Distribution Width 13.6 % (11.6-14.8); White Blood Cell Count 5.5 X10^3/uL (4.5-11.0)
[2019-03-07 14:29] LABS: Alanine Aminotransferase 29 IU/L (21-72); Albumin 3.9 g/dL (3.5-5.0); Albumin Globulin Ratio 1.3 (1.0-2.8); Alkaline Phosphatase 68 U/L (38-126); Aspartate Aminotransferase 34 IU/L (17-59); BUN Creatinine Ratio 17.8 (6-22); Bilirubin Total 0.4 mg/dL (0.2-1.3); Blood Urea Nitrogen 16 mg/dL (9-20); Calcium 9.2 mg/dL (8.4-10.2); Carbon Dioxide 25 mmol/L (22-32); Chloride 104 mmol/L (98-107); Estimated Glomerular Filt Rate > 60.0 mL/min (>60); Glucose 125 mg/dL (80-110); HEMOLYSIS < 15 (0-50); Potassium 4.3 mmol/L (3.4-5.1); Sodium 139 mmol/L (137-145); Total Protein 6.9 g/dL (6.3-8.2)
[2019-03-13 08:30] VITALS: BP 110/72; PULSE 92; RESP 16; TEMP 36.2; O2SAT 95
[2019-03-13 08:34] LABS: Add Manual Diff / Slide Review NO; Basophils Absolute Auto 0 /uL (0-100); Basophils Percent Auto 0.9 % (0-2); Eosinophils Absolute Auto 300 /uL (0-450); Eosinophils Percent Auto 5.2 % (2-4); Hemoglobin 12.8 g/dL (13.5-17.5); Lymphocytes Absolute Auto 2000 /uL (1100-4500); Lymphocytes Percent Auto 38.2 % (25-40); Mean Corpuscular HGB Conc 33.7 % (30-36); Mean Corpuscular Hemoglobin 30.8 PG (26-34); Mean Corpuscular Volume 91.5 fL (80-100); Monocytes Absolute Auto 700 /uL (0-900); Neutrophils Absolute Auto 2200 /uL (1500-7000); Neutrophils Percent Auto 42.7 % (50-75); Platelet Count 81 X10^3/uL (150-400); Red Blood Cell Count 4.16 X10^6/uL (4.5-5.9); Red Cell Distribution Width 14.1 % (11.6-14.8); White Blood Cell Count 5.2 X10^3/uL (4.5-11.0)
--- NOTE | 2019-03-13 08:44 | ONC.PN ---
PN -Subjective Interval history: Diagnosis: Rectal cancer, T4 N2 Previous treatment: 1. 2 cycles of neoadjuvant FOLFOX Interval history: The patient is a 78-year-old man who returns today for follow-up. He has recently been found to have a locally advanced rectal cancer. He is being treated with total neoadjuvant therapy. He has completed 2 cycles of FOLFOX thus far. He is due for his 3rd cycle today. He has been tolerating them quite well. His biggest complaint has been fatigue. He finds that he is only able to walk about a mi and a half a day instead of his usual 3-5 miles. He has a little bit of dyspnea on exertion. He is taking some more frequent naps. His appetite has been good. He has not had any nausea or vomiting. He is not having any mouth sores skin rash or diarrhea. He has not noticed any rectal pain or bleeding. He has not had any cold sensitivity or neuropathy. No fevers or chills. He otherwise is without complaint. His past medical history is otherwise notable for ulcerative colitis. He has a history of prostate cancer treated with seeds. He has had several fractures. He does have a history of asbestos exposure. - Patient Self-Reported Symptoms SR Constitution: Fatigue/Malaise Home Medications and Allergies Home Medications Medication Instructions Recorded Confirmed Type ascorbic acid (vitamin C) [Vitamin 500 mg PO DAILY 01/23/19 03/13/19 History C] ferrous sulfate [iron] 325 mg PO DAILY 01/23/19 03/13/19 History fluorouracil 5,300 mg IV NOW #1 device 01/23/19 03/13/19 Rx acetaminophen 650 mg PO Q6H PRN #30 cap 02/06/19 03/13/19 Rx ondansetron 8 mg PO Q8H #30 tab 02/13/19 03/13/19 Rx Allergies Allergy/AdvReac Type Severity Reaction Status Date / Time No Known Drug Allergies Allergy Verified 02/06/19 11:51 Exam Vital signs: Vital Signs Temp Pulse Resp BP Pulse Ox 03/13/19 08:30 97.2 F L 92 H 16 110/72 95 Intake and Output 03/12/19 03/13/19 03/13/19 23:59 07:59 15:59 Other: Weight 97.6 kg Patient Weight 03/13/19 23:59 Weight 97.6 kg - Constitutional positive no acute distress, positive average body habitus - Routine HEENT Exam Head: Present: normocephalic, atraumatic Eye: Present: EOMI, PERRL. Absent: conjunctival icterus, scleral injection ENT: Present: mucous membranes moist, oropharynx clear - Routine Neck Exam Present: supple. Absent: lymphadenopathy, thyromegaly - Routine Respiratory Exam Present: Clear to auscultation bilaterally. Absent: rales, wheezes - Routine Cardiovascular Exam Present: RRR, S1, S2. Absent: murmur - Routine Abdominal Exam Present: soft, normoactive bowel sounds. Absent: tenderness, organomegaly, mass - Routine Extremities Exam Absent: cyanosis, clubbing, edema - Routine Back/Spine Exam Back/Spine: Absent: vertebral tenderness - Routine Skin Exam Present: intact. Absent: petechiae, rash - Routine Neurological Exam Present: alert, oriented X3 - Routine Psychiatric Exam Present: normal affect, normal thought process Results - Labs Laboratory Last Values WBC 5.2 X10^3/uL (4.5-11.0) 03/13/19 08:20 RBC 4.16 X10^6/uL (4.5-5.9) L 03/13/19 08:20 Hgb 12.8 g/dL (13.5-17.5) L 03/13/19 08:20 Hct 38.0 % (41-53) L 03/13/19 08:20 MCV 91.5 fL (80-100) 03/13/19 08:20 MCH 30.8 PG (26-34) 03/13/19 08:20 MCHC 33.7 % (30-36) 03/13/19 08:20 RDW 14.1 % (11.6-14.8) 03/13/19 08:20 Plt Count 81 X10^3/uL (150-400) L 03/13/19 08:20 Neut % (Auto) 42.7 % (50-75) L 03/13/19 08:20 Lymph % (Auto) 38.2 % (25-40) 03/13/19 08:20 [place] % (Auto) 13.0 % (3-14) 03/13/19 08:20 Eos % (Auto) 5.2 % (2-4) H 03/13/19 08:20 Baso % (Auto) 0.9 % (0-2) 03/13/19 08:20 Neut # (Auto) 2200 /uL ([id number]) 03/13/19 08:20 Lymph # (Auto) 2000 /uL (3584-4636) 03/13/19 08:20 [place] # (Auto) 700 /uL (0-900) 03/13/19 08:20 Eos # (Auto) 300 /uL (0-450) 03/13/19 08:20 Baso # (Auto) 0 /uL (0-100) 03/13/19 08:20 Sodium 139 mmol/L (137-145) 03/07/19 14:00 Potassium 4.3 mmol/L (3.4-5.1) 03/07/19 14:00 Chloride 104 mmol/L (98-107) 03/07/19 14:00 Carbon Dioxide 25 mmol/L (22-32) 03/07/19 14:00 BUN 16 mg/dL (9-20) 03/07/19 14:00 Creatinine 0.90 mg/dL (0.66-1.25) 03/07/19 14:00 Estimated GFR > 60.0 mL/min (>60) 03/07/19 14:00 BUN/Creatinine Ratio 17.8 (6-22) 03/07/19 14:00 Glucose 125 mg/dL (80-110) H 03/07/19 14:00 Calcium 9.2 mg/dL (8.4-10.2) 03/07/19 14:00 Total Bilirubin 0.4 mg/dL (0.2-1.3) 03/07/19 14:00 AST 34 IU/L (17-59) 03/07/19 14:00 ALT 29 IU/L (21-72) 03/07/19 14:00 Alkaline Phosphatase 68 U/L (38-126) 03/07/19 14:00 Total Protein 6.9 g/dL (6.3-8.2) 03/07/19 14:00 Albumin 3.9 g/dL (3.5-5.0) 03/07/19 14:00 Globulin 3.0 g/dL (1.7-4.1) 03/07/19 14:00 Albumin/Globulin Ratio 1.3 (1.0-2.8) 03/07/19 14:00 - Imaging Additional studies: Procedures Colonoscopy (01/14/12) Assessment and Plan (1) Rectal cancer Current visit: Yes Status: Acute 78-year-old man otherwise quite healthy with a new diagnosis of rectal cancer. He has a locally advanced tumor in a prior history of radiation to the prostate. He has been tolerating his neoadjuvant FOLFOX quite well except for myelosuppression. He has platelet count of only 81 today. Will delay his 3rd cycle by 1 week. He will return to clinic here for treatment in a week. I will see him again 2 weeks after that.
[2019-03-13 08:47] LABS: Alanine Aminotransferase 36 IU/L (21-72); Albumin 4.1 g/dL (3.5-5.0); Albumin Globulin Ratio 1.4 (1.0-2.8); Alkaline Phosphatase 85 U/L (38-126); Aspartate Aminotransferase 43 IU/L (17-59); BUN Creatinine Ratio 21.4 (6-22); Bilirubin Total 0.4 mg/dL (0.2-1.3); Blood Urea Nitrogen 15 mg/dL (9-20); Calcium 9.3 mg/dL (8.4-10.2); Carbon Dioxide 29 mmol/L (22-32); Chloride 102 mmol/L (98-107); Estimated Glomerular Filt Rate > 60.0 mL/min (>60); Glucose 125 mg/dL (80-110); HEMOLYSIS < 15 (0-50); Potassium 4.6 mmol/L (3.4-5.1); Sodium 140 mmol/L (137-145); Total Protein 7.1 g/dL (6.3-8.2)
[2019-03-20 09:18] LABS: Add Manual Diff / Slide Review NO; Basophils Absolute Auto 0 /uL (0-100); Basophils Percent Auto 0.7 % (0-2); Eosinophils Absolute Auto 200 /uL (0-450); Eosinophils Percent Auto 4.7 % (2-4); Hematocrit 38.6 % (41-53); Hemoglobin 13.2 g/dL (13.5-17.5); Lymphocytes Absolute Auto 2000 /uL (1100-4500); Lymphocytes Percent Auto 45.2 % (25-40); Mean Corpuscular HGB Conc 34.2 % (30-36); Mean Corpuscular Hemoglobin 31.1 PG (26-34); Mean Corpuscular Volume 91.1 fL (80-100); Monocytes Absolute Auto 600 /uL (0-900); Monocytes Percent Auto 14.5 % (3-14); Neutrophils Absolute Auto 1500 /uL (1500-7000); Neutrophils Percent Auto 34.9 % (50-75); Platelet Count 124 X10^3/uL (150-400); Red Blood Cell Count 4.24 X10^6/uL (4.5-5.9); Red Cell Distribution Width 15.5 % (11.6-14.8); White Blood Cell Count 4.4 X10^3/uL (4.5-11.0)
[2019-03-20 09:22] VITALS: BP 121/78; PULSE 78; RESP 20; TEMP 36.5; O2SAT 96
[2019-03-20] MEDS: ALTEPLASE 2 MG/2 ML VIAL IV (09:25)
[2019-03-20 09:28] LABS: Alanine Aminotransferase 40 IU/L (21-72); Albumin 4.2 g/dL (3.5-5.0); Albumin Globulin Ratio 1.3 (1.0-2.8); Alkaline Phosphatase 91 U/L (38-126); Aspartate Aminotransferase 43 IU/L (17-59); BUN Creatinine Ratio 18.8 (6-22); Bilirubin Total 0.5 mg/dL (0.2-1.3); Blood Urea Nitrogen 15 mg/dL (9-20); Calcium 9.5 mg/dL (8.4-10.2); Carbon Dioxide 28 mmol/L (22-32); Chloride 103 mmol/L (98-107); Estimated Glomerular Filt Rate > 60.0 mL/min (>60); Globulin 3.2 g/dL (1.7-4.1); Glucose 105 mg/dL (80-110); HEMOLYSIS < 15 (0-50); Potassium 4.4 mmol/L (3.4-5.1); Sodium 141 mmol/L (137-145); Total Protein 7.4 g/dL (6.3-8.2)
--- NOTE | 2019-03-20 09:47 | ONC.MSW ---
*Pt has received a Chemo Quilt.
[2019-03-20] MEDS: DEXTROSE 5 % IN WATER 100 ML 21 ML IV (10:55)
[2019-03-20] MEDS: ONDANSETRON 16 MG in SODIUM CHLORIDE 0.9% 50 ML 232 ML IV (11:11)
[2019-03-20] MEDS: OXALIPLATIN IV (11:53)
[2019-03-20] MEDS: DEXTROSE 5% IV ×2 (11:53→11:54)
[2019-03-20] MEDS: LEUCOVORIN IV (11:54)
[2019-03-20] MEDS: ISOOSMOTIC VEHICLE IV (14:32)
[2019-03-20] MEDS: FLUOROURACIL IV (14:32)
--- NOTE | 2019-03-20 16:03 | PC.NURSE ---
New CADD pump teaching, pt verbalized understaning, checked for blood return, verified green light with patient. Dose checked with RENU, RN.
--- NOTE | 2019-03-22 13:34 | PC.NURSE ---
Pump disconnect today. Patient tolerated treatment well. [place] empty. Pump completed.
[2019-03-27 13:23] LABS: Add Manual Diff / Slide Review NO; Basophils Absolute Auto 0 /uL (0-100); Basophils Percent Auto 0.6 % (0-2); Eosinophils Absolute Auto 200 /uL (0-450); Eosinophils Percent Auto 4.3 % (2-4); Hemoglobin 12.9 g/dL (13.5-17.5); Lymphocytes Absolute Auto 2400 /uL (1100-4500); Lymphocytes Percent Auto 45.8 % (25-40); Mean Corpuscular HGB Conc 34.1 % (30-36); Mean Corpuscular Volume 91.1 fL (80-100); Monocytes Absolute Auto 400 /uL (0-900); Monocytes Percent Auto 8.3 % (3-14); Neutrophils Absolute Auto 2100 /uL (1500-7000); Platelet Count 85 X10^3/uL (150-400); Red Blood Cell Count 4.17 X10^6/uL (4.5-5.9); Red Cell Distribution Width 14.9 % (11.6-14.8); White Blood Cell Count 5.1 X10^3/uL (4.5-11.0)
[2019-03-27 13:36] LABS: Alanine Aminotransferase 26 IU/L (21-72); Albumin 4.1 g/dL (3.5-5.0); Albumin Globulin Ratio 1.3 (1.0-2.8); Alkaline Phosphatase 82 U/L (38-126); Aspartate Aminotransferase 42 IU/L (17-59); BUN Creatinine Ratio 22.5 (6-22); Bilirubin Total 0.7 mg/dL (0.2-1.3); Blood Urea Nitrogen 18 mg/dL (9-20); Calcium 9.2 mg/dL (8.4-10.2); Carbon Dioxide 28 mmol/L (22-32); Chloride 102 mmol/L (98-107); Estimated Glomerular Filt Rate > 60.0 mL/min (>60); Globulin 3.2 g/dL (1.7-4.1); Glucose 122 mg/dL (80-110); HEMOLYSIS 16 (0-50); Sodium 140 mmol/L (137-145); Total Protein 7.3 g/dL (6.3-8.2)
[2019-04-03 08:43] LABS: Add Manual Diff / Slide Review NO; Basophils Absolute Auto 0 /uL (0-100); Basophils Percent Auto 0.5 % (0-2); Eosinophils Absolute Auto 100 /uL (0-450); Eosinophils Percent Auto 2.5 % (2-4); Hemoglobin 12.9 g/dL (13.5-17.5); Lymphocytes Absolute Auto 1700 /uL (1100-4500); Lymphocytes Percent Auto 37.4 % (25-40); Mean Corpuscular HGB Conc 34.1 % (30-36); Mean Corpuscular Volume 90.9 fL (80-100); Monocytes Absolute Auto 600 /uL (0-900); Monocytes Percent Auto 13.2 % (3-14); Neutrophils Absolute Auto 2100 /uL (1500-7000); Neutrophils Percent Auto 46.4 % (50-75); Platelet Count 90 X10^3/uL (150-400); Red Blood Cell Count 4.17 X10^6/uL (4.5-5.9); Red Cell Distribution Width 15.7 % (11.6-14.8); White Blood Cell Count 4.5 X10^3/uL (4.5-11.0)
[2019-04-03 08:44] VITALS: BP 115/68; PULSE 87; RESP 18; TEMP 36.1; O2SAT 96
[2019-04-03 08:53] LABS: Alanine Aminotransferase 33 IU/L (21-72); Albumin 4.2 g/dL (3.5-5.0); Albumin Globulin Ratio 1.3 (1.0-2.8); Alkaline Phosphatase 86 U/L (38-126); Aspartate Aminotransferase 44 IU/L (17-59); BUN Creatinine Ratio 16.7 (6-22); Bilirubin Total 0.6 mg/dL (0.2-1.3); Blood Urea Nitrogen 15 mg/dL (9-20); Calcium 9.4 mg/dL (8.4-10.2); Carbon Dioxide 27 mmol/L (22-32); Chloride 104 mmol/L (98-107); Estimated Glomerular Filt Rate > 60.0 mL/min (>60); Globulin 3.2 g/dL (1.7-4.1); Glucose 110 mg/dL (80-110); HEMOLYSIS < 15 (0-50); Potassium 4.1 mmol/L (3.4-5.1); Sodium 142 mmol/L (137-145); Total Protein 7.4 g/dL (6.3-8.2)
--- NOTE | 2019-04-03 08:59 | ONC.PN ---
PN -Subjective Interval history: Diagnosis: Rectal cancer, T4 N2 Previous treatment: 1. 3 cycles of neoadjuvant FOLFOX Interval history: The patient is a 78-year-old man who returns today for follow-up. He has recently been found to have a locally advanced rectal cancer. He is being treated with total neoadjuvant therapy. He has completed 3 cycles of FOLFOX thus far. He did have a delay in his last cycle due to thrombocytopenia. Today, he is feeling well. He is not having any nausea or vomiting. His appetite has been good. He has noted some increased fatigue. He has had some cold sensitivity for the 1st day or 2 after the oxaliplatin infusions but no longer lasting neuropathy. Bowels have been moving normally. He has not had any diarrhea, mouth sores or skin rash. No fevers or chills. No unusual bleeding or bruising. He denies any new aches or pains. He denies any other changes in his health. His past medical history is otherwise notable for ulcerative colitis. He has a history of prostate cancer treated with seeds. He has had several fractures. He does have a history of asbestos exposure. - Patient Self-Reported Symptoms SR Constitution: Fatigue/Malaise Home Medications and Allergies Home Medications Medication Instructions Recorded Confirmed Type fluorouracil 5,300 mg IV NOW #1 device 01/23/19 04/03/19 Rx acetaminophen 650 mg PO Q6H PRN #30 cap 02/06/19 04/03/19 Rx ondansetron 8 mg PO Q8H #30 tab 02/13/19 04/03/19 Rx Allergies Allergy/AdvReac Type Severity Reaction Status Date / Time No Known Drug Allergies Allergy Verified 02/06/19 11:51 Exam Vital signs: Vital Signs Temp Pulse Resp BP Pulse Ox 04/03/19 08:44 97 F L 87 18 115/68 96 Intake and Output 04/02/19 04/03/19 04/03/19 23:59 07:59 15:59 Other: Weight 98 kg Patient Weight 04/03/19 23:59 Weight 98 kg - Constitutional positive no acute distress, positive average body habitus - Routine HEENT Exam Head: Present: normocephalic, atraumatic Eye: Present: EOMI, PERRL. Absent: conjunctival icterus, scleral injection ENT: Present: mucous membranes moist, oropharynx clear - Routine Neck Exam Present: supple. Absent: lymphadenopathy, thyromegaly - Routine Respiratory Exam Present: Clear to auscultation bilaterally. Absent: rales, wheezes - Routine Cardiovascular Exam Present: RRR, S1, S2. Absent: murmur - Routine Abdominal Exam Present: soft, normoactive bowel sounds. Absent: tenderness, organomegaly, mass - Routine Extremities Exam Absent: cyanosis, clubbing, edema - Routine Back/Spine Exam Back/Spine: Absent: vertebral tenderness - Routine Skin Exam Present: intact. Absent: petechiae, rash - Routine Neurological Exam Present: alert, oriented X3 - Routine Psychiatric Exam Present: normal affect, normal thought process Results - Labs Laboratory Last Values WBC 4.5 X10^3/uL (4.5-11.0) 04/03/19 08:30 RBC 4.17 X10^6/uL (4.5-5.9) L 04/03/19 08:30 Hgb 12.9 g/dL (13.5-17.5) L 04/03/19 08:30 Hct 38.0 % (41-53) L 04/03/19 08:30 MCV 90.9 fL (80-100) 04/03/19 08:30 MCH 31.0 PG (26-34) 04/03/19 08:30 MCHC 34.1 % (30-36) 04/03/19 08:30 RDW 15.7 % (11.6-14.8) H 04/03/19 08:30 Plt Count 90 X10^3/uL (150-400) L 04/03/19 08:30 Neut % (Auto) 46.4 % (50-75) L 04/03/19 08:30 Lymph % (Auto) 37.4 % (25-40) 04/03/19 08:30 [place] % (Auto) 13.2 % (3-14) 04/03/19 08:30 Eos % (Auto) 2.5 % (2-4) 04/03/19 08:30 Baso % (Auto) 0.5 % (0-2) 04/03/19 08:30 Neut # (Auto) 2100 /uL ([id number]) 04/03/19 08:30 Lymph # (Auto) 1700 /uL (8980-3492) 04/03/19 08:30 [place] # (Auto) 600 /uL (0-900) 04/03/19 08:30 Eos # (Auto) 100 /uL (0-450) 04/03/19 08:30 Baso # (Auto) 0 /uL (0-100) 04/03/19 08:30 Sodium 142 mmol/L (137-145) 04/03/19 08:30 Potassium 4.1 mmol/L (3.4-5.1) 04/03/19 08:30 Chloride 104 mmol/L (98-107) 04/03/19 08:30 Carbon Dioxide 27 mmol/L (22-32) 04/03/19 08:30 BUN 15 mg/dL (9-20) 04/03/19 08:30 Creatinine 0.90 mg/dL (0.66-1.25) 04/03/19 08:30 Estimated GFR > 60.0 mL/min (>60) 04/03/19 08:30 BUN/Creatinine Ratio 16.7 (6-22) 04/03/19 08:30 Glucose 110 mg/dL (80-110) 04/03/19 08:30 Calcium 9.4 mg/dL (8.4-10.2) 04/03/19 08:30 Total Bilirubin 0.6 mg/dL (0.2-1.3) 04/03/19 08:30 AST 44 IU/L (17-59) 04/03/19 08:30 ALT 33 IU/L (21-72) 04/03/19 08:30 Alkaline Phosphatase 86 U/L (38-126) 04/03/19 08:30 Total Protein 7.4 g/dL (6.3-8.2) 04/03/19 08:30 Albumin 4.2 g/dL (3.5-5.0) 04/03/19 08:30 Globulin 3.2 g/dL (1.7-4.1) 04/03/19 08:30 Albumin/Globulin Ratio 1.3 (1.0-2.8) 04/03/19 08:30 - Imaging Additional studies: Procedures Colonoscopy (01/14/12) Assessment and Plan (1) Rectal cancer Current visit: Yes Status: Acute 78-year-old man otherwise quite healthy with a new diagnosis of rectal cancer. He has a locally advanced tumor in a prior history of radiation to the prostate. He has been tolerating his neoadjuvant FOLFOX quite well except for thrombocytopenia. Will proceed with his 4th of 6 cycles today. He will return to clinic in 2 weeks for follow-up. He will proceed to chemo radiation with proton therapy after his FOLFOX.
[2019-04-03] MEDS: ALTEPLASE 2 MG/2 ML VIAL IV (09:18)
[2019-04-03] MEDS: ONDANSETRON 16 MG in SODIUM CHLORIDE 0.9% 50 ML 232 ML IV (09:58)
[2019-04-03] MEDS: OXALIPLATIN IV (11:08)
[2019-04-03] MEDS: LEUCOVORIN IV (11:08)
[2019-04-03] MEDS: DEXTROSE 5% IV ×2 (11:08)
[2019-04-03] MEDS: FLUOROURACIL IV (14:04)
[2019-04-03] MEDS: ISOOSMOTIC VEHICLE IV (14:04)
--- NOTE | 2019-04-03 15:25 | PC.NURSE ---
5fu pump attached with connections secured. +blood return. dose verified with viv [place]. green light blinking on pump
--- NOTE | 2019-04-04 16:03 | PC.NURSE ---
Cathryn Chu, RN from [facility] called inquiring pt's anticipated end date for [facility] to plan next in treatment for pt. Explained Dr. Guy planning of 6 cycles, and pt just completed his 4th tx, and 6th cylce is schedule for 05/01. Faxed recent prog note to Cathryn at [phone].
--- NOTE | 2019-04-05 16:35 | PC.NURSE ---
CADD pump powered off, dc'd w/o issue. Pt reports tolerating well. Port needle dc'd. BP 112/78, T98.2, P83, 97% on RA. No s/s of acute distress noted.
--- NOTE | 2019-04-09 11:22 | PC.NURSE ---
Patient called stating he had developed an olive size swelling on anus which he assumes is a hemorrhoid. NO bleeding or pain. He was constipated and straining but after taking stool softeners he has had normal bowel movements the last couple days. He states otherwise to be doing well/no problems. This nurse instructed patient to continue to use stool softener and he can try ice packs a couple times a day if it is bothersome. He should report situation at next visit with Dr. Guy but was instructed if he starts to bleed and it does not stop quickly he should go straight to ER. He should call us if any further problems with it.
[2019-04-10] MEDS: ALTEPLASE 2 MG/2 ML VIAL IV (10:01)
[2019-04-10 10:06] LABS: Add Manual Diff / Slide Review NO; Basophils Absolute Auto 0 /uL (0-100); Basophils Percent Auto 0.6 % (0-2); Eosinophils Absolute Auto 200 /uL (0-450); Eosinophils Percent Auto 4.8 % (2-4); Hematocrit 37.7 % (41-53); Hemoglobin 12.7 g/dL (13.5-17.5); Lymphocytes Absolute Auto 2400 /uL (1100-4500); Lymphocytes Percent Auto 58.7 % (25-40); Mean Corpuscular HGB Conc 33.6 % (30-36); Mean Corpuscular Hemoglobin 31.3 PG (26-34); Monocytes Absolute Auto 400 /uL (0-900); Monocytes Percent Auto 10.3 % (3-14); Neutrophils Absolute Auto 1100 /uL (1500-7000); Neutrophils Percent Auto 25.6 % (50-75); Platelet Count 97 X10^3/uL (150-400); Red Blood Cell Count 4.06 X10^6/uL (4.5-5.9); Red Cell Distribution Width 15.9 % (11.6-14.8); White Blood Cell Count 4.2 X10^3/uL (4.5-11.0)
[2019-04-10 10:21] LABS: Alanine Aminotransferase 41 IU/L (21-72); Albumin 3.9 g/dL (3.5-5.0); Albumin Globulin Ratio 1.3 (1.0-2.8); Alkaline Phosphatase 98 U/L (38-126); Aspartate Aminotransferase 44 IU/L (17-59); Bilirubin Total 0.5 mg/dL (0.2-1.3); Blood Urea Nitrogen 15 mg/dL (9-20); Carbon Dioxide 24 mmol/L (22-32); Chloride 107 mmol/L (98-107); Estimated Glomerular Filt Rate > 60.0 mL/min (>60); Globulin 3.1 g/dL (1.7-4.1); Glucose 114 mg/dL (80-110); HEMOLYSIS < 15 (0-50); Potassium 4.2 mmol/L (3.4-5.1); Sodium 140 mmol/L (137-145)
[2019-04-17 09:04] VITALS: BP 117/71; PULSE 80; RESP 18; TEMP 36.3; O2SAT 95
[2019-04-17 09:05] LABS: Add Manual Diff / Slide Review NO; Basophils Absolute Auto 0 /uL (0-100); Basophils Percent Auto 0.6 % (0-2); Eosinophils Absolute Auto 100 /uL (0-450); Eosinophils Percent Auto 2.7 % (2-4); Hematocrit 35.9 % (41-53); Hemoglobin 12.3 g/dL (13.5-17.5); Lymphocytes Absolute Auto 2000 /uL (1100-4500); Lymphocytes Percent Auto 39.9 % (25-40); Mean Corpuscular HGB Conc 34.4 % (30-36); Mean Corpuscular Hemoglobin 31.9 PG (26-34); Mean Corpuscular Volume 92.7 fL (80-100); Monocytes Absolute Auto 700 /uL (0-900); Monocytes Percent Auto 13.2 % (3-14); Neutrophils Absolute Auto 2200 /uL (1500-7000); Neutrophils Percent Auto 43.6 % (50-75); Platelet Count 66 X10^3/uL (150-400); Red Blood Cell Count 3.87 X10^6/uL (4.5-5.9); Red Cell Distribution Width 17.1 % (11.6-14.8)
[2019-04-17] MEDS: ALTEPLASE 2 MG/2 ML VIAL IV (09:07)
[2019-04-17 09:17] LABS: Alanine Aminotransferase 34 IU/L (21-72); Albumin Globulin Ratio 1.3 (1.0-2.8); Alkaline Phosphatase 97 U/L (38-126); Aspartate Aminotransferase 44 IU/L (17-59); BUN Creatinine Ratio 21.4 (6-22); Bilirubin Total 0.5 mg/dL (0.2-1.3); Blood Urea Nitrogen 15 mg/dL (9-20); Calcium 9.1 mg/dL (8.4-10.2); Carbon Dioxide 25 mmol/L (22-32); Chloride 106 mmol/L (98-107); Estimated Glomerular Filt Rate > 60.0 mL/min (>60); Globulin 3.1 g/dL (1.7-4.1); Glucose 104 mg/dL (80-110); HEMOLYSIS < 15 (0-50); Potassium 4.1 mmol/L (3.4-5.1); Sodium 139 mmol/L (137-145); Total Protein 7.1 g/dL (6.3-8.2)
--- NOTE | 2019-04-17 09:22 | ONC.PN ---
PN -Subjective Interval history: Diagnosis: Rectal cancer, T4 N2 Previous treatment: 1. 4 cycles of neoadjuvant FOLFOX Interval history: The patient is a 78-year-old man who returns today for follow-up. He has recently been found to have a locally advanced rectal cancer. He is being treated with total neoadjuvant therapy. He has completed 4 cycles of FOLFOX thus far. He continues to tolerate his treatment fairly well. He has had some ongoing fatigue that has been stable. I still able to walk 2 to 2-1/2 miles a day but feels more tired when he completes it. He has not had any nausea or vomiting. His appetite has been good. He has not had any diarrhea and in fact has been tending towards constipation. He was straining and developed a hemorrhoid but that seems to be improving as well. He denies any new aches or pains. No fevers chills or sweats. He has had a little bit of cold sensitivity but it has been intermittent. He has not had any long-lasting neuropathy. He denies any other changes in his health. His past medical history is otherwise notable for ulcerative colitis. He has a history of prostate cancer treated with seeds. He has had several fractures. He does have a history of asbestos exposure. - Patient Self-Reported Symptoms SR Constitution: Fatigue/Malaise Home Medications and Allergies Home Medications Medication Instructions Recorded Confirmed Type fluorouracil 5,300 mg IV NOW #1 device 01/23/19 04/17/19 Rx acetaminophen 650 mg PO Q6H PRN #30 cap 02/06/19 04/17/19 Rx ondansetron 8 mg PO Q8H #30 tab 02/13/19 04/17/19 Rx Allergies Allergy/AdvReac Type Severity Reaction Status Date / Time No Known Drug Allergies Allergy Verified 02/06/19 11:51 Exam Vital signs: Vital Signs Temp Pulse Resp BP Pulse Ox 04/17/19 09:04 97.4 F L 80 18 117/71 95 Intake and Output 04/16/19 04/17/19 04/17/19 23:59 07:59 15:59 Other: Weight 100.5 kg Patient Weight 04/17/19 23:59 Weight 100.5 kg - Constitutional positive no acute distress, positive average body habitus - Routine HEENT Exam Head: Present: normocephalic, atraumatic Eye: Present: EOMI, PERRL. Absent: conjunctival icterus, scleral injection ENT: Present: mucous membranes moist, oropharynx clear - Routine Neck Exam Present: supple. Absent: lymphadenopathy, thyromegaly - Routine Respiratory Exam Present: Clear to auscultation bilaterally. Absent: rales, wheezes - Routine Cardiovascular Exam Present: RRR, S1, S2. Absent: murmur - Routine Abdominal Exam Present: soft, normoactive bowel sounds. Absent: tenderness, organomegaly, mass - Routine Extremities Exam Absent: cyanosis, clubbing, edema - Routine Back/Spine Exam Back/Spine: Absent: vertebral tenderness - Routine Skin Exam Present: intact. Absent: petechiae, rash - Routine Neurological Exam Present: alert, oriented X3 - Routine Psychiatric Exam Present: normal affect, normal thought process Results - Labs Laboratory Last Values WBC 5.0 X10^3/uL (4.5-11.0) 04/17/19 08:27 RBC 3.87 X10^6/uL (4.5-5.9) L 04/17/19 08:27 Hgb 12.3 g/dL (13.5-17.5) L 04/17/19 08:27 Hct 35.9 % (41-53) L 04/17/19 08:27 MCV 92.7 fL (80-100) 04/17/19 08:27 MCH 31.9 PG (26-34) 04/17/19 08:27 MCHC 34.4 % (30-36) 04/17/19 08:27 RDW 17.1 % (11.6-14.8) H 04/17/19 08:27 Plt Count 66 X10^3/uL (150-400) L 04/17/19 08:27 Neut % (Auto) 43.6 % (50-75) L 04/17/19 08:27 Lymph % (Auto) 39.9 % (25-40) 04/17/19 08:27 [place] % (Auto) 13.2 % (3-14) 04/17/19 08:27 Eos % (Auto) 2.7 % (2-4) 04/17/19 08:27 Baso % (Auto) 0.6 % (0-2) 04/17/19 08:27 Neut # (Auto) 2200 /uL (7448-9637) 04/17/19 08:27 Lymph # (Auto) 2000 /uL (3190-2788) 04/17/19 08:27 [place] # (Auto) 700 /uL (0-900) 04/17/19 08:27 Eos # (Auto) 100 /uL (0-450) 04/17/19 08:27 Baso # (Auto) 0 /uL (0-100) 04/17/19 08:27 Sodium 139 mmol/L (137-145) 04/17/19 08:27 Potassium 4.1 mmol/L (3.4-5.1) 04/17/19 08:27 Chloride 106 mmol/L (98-107) 04/17/19 08:27 Carbon Dioxide 25 mmol/L (22-32) 04/17/19 08:27 BUN 15 mg/dL (9-20) 04/17/19 08:27 Creatinine 0.70 mg/dL (0.66-1.25) 04/17/19 08:27 Estimated GFR > 60.0 mL/min (>60) 04/17/19 08:27 BUN/Creatinine Ratio 21.4 (6-22) 04/17/19 08:27 Glucose 104 mg/dL (80-110) 04/17/19 08:27 Calcium 9.1 mg/dL (8.4-10.2) 04/17/19 08:27 Total Bilirubin 0.5 mg/dL (0.2-1.3) 04/17/19 08:27 AST 44 IU/L (17-59) 04/17/19 08:27 ALT 34 IU/L (21-72) 04/17/19 08:27 Alkaline Phosphatase 97 U/L (38-126) 04/17/19 08:27 Total Protein 7.1 g/dL (6.3-8.2) 04/17/19 08:27 Albumin 4.0 g/dL (3.5-5.0) 04/17/19 08:27 Globulin 3.1 g/dL (1.7-4.1) 04/17/19 08:27 Albumin/Globulin Ratio 1.3 (1.0-2.8) 04/17/19 08:27 - Imaging Additional studies: Procedures Colonoscopy (01/14/12) Assessment and Plan (1) Rectal cancer Current visit: Yes Status: Acute 78-year-old man otherwise quite healthy with a new diagnosis of rectal cancer. He has a locally advanced tumor in a prior history of radiation to the prostate. He has been tolerating his neoadjuvant FOLFOX quite well except for thrombocytopenia. His platelets today are only 66. He will need to delay a week and resume his chemotherapy in 1 week. We might want to consider dose reducing the oxaliplatin a bit.
[2019-04-24 10:25] LABS: Add Manual Diff / Slide Review NO; Basophils Absolute Auto 0 /uL (0-100); Basophils Percent Auto 0.9 % (0-2); Eosinophils Absolute Auto 200 /uL (0-450); Eosinophils Percent Auto 4.1 % (2-4); Hematocrit 36.2 % (41-53); Hemoglobin 12.2 g/dL (13.5-17.5); Lymphocytes Absolute Auto 2300 /uL (1100-4500); Lymphocytes Percent Auto 54.7 % (25-40); Mean Corpuscular HGB Conc 33.6 % (30-36); Mean Corpuscular Hemoglobin 31.9 PG (26-34); Mean Corpuscular Volume 94.8 fL (80-100); Monocytes Absolute Auto 700 /uL (0-900); Neutrophils Absolute Auto 1000 /uL (1500-7000); Neutrophils Percent Auto 24.3 % (50-75); Platelet Count 106 X10^3/uL (150-400); Red Blood Cell Count 3.82 X10^6/uL (4.5-5.9); White Blood Cell Count 4.2 X10^3/uL (4.5-11.0)
[2019-04-24] MEDS: ALTEPLASE 2 MG/2 ML VIAL IV (10:29)
[2019-04-24 10:39] LABS: Alanine Aminotransferase 28 IU/L (21-72); Albumin Globulin Ratio 1.3 (1.0-2.8); Alkaline Phosphatase 89 U/L (38-126); Aspartate Aminotransferase 45 IU/L (17-59); BUN Creatinine Ratio 22.9 (6-22); Bilirubin Total 0.4 mg/dL (0.2-1.3); Blood Urea Nitrogen 16 mg/dL (9-20); Calcium 8.9 mg/dL (8.4-10.2); Carbon Dioxide 26 mmol/L (22-32); Chloride 106 mmol/L (98-107); Estimated Glomerular Filt Rate > 60.0 mL/min (>60); Globulin 3.1 g/dL (1.7-4.1); Glucose 104 mg/dL (80-110); HEMOLYSIS < 15 (0-50); Potassium 4.4 mmol/L (3.4-5.1); Sodium 139 mmol/L (137-145); Total Protein 7.1 g/dL (6.3-8.2)
[2019-04-24] MEDS: ONDANSETRON 16 MG in SODIUM CHLORIDE 0.9% 50 ML 232 ML IV (11:31)
[2019-04-24] MEDS: DEXTROSE 5 % IN WATER 100 ML 21 ML IV (12:17)
[2019-04-24] MEDS: DEXTROSE 5% IV ×2 (12:19→12:20)
[2019-04-24] MEDS: OXALIPLATIN IV (12:19)
[2019-04-24] MEDS: LEUCOVORIN IV (12:20)
[2019-04-24 12:58] VITALS: BP 126/68; PULSE 67; RESP 16; TEMP 36.8; O2SAT 97
[2019-04-24] MEDS: FLUOROURACIL IV (15:06)
[2019-04-24] MEDS: ISOOSMOTIC VEHICLE IV (15:06)
--- NOTE | 2019-04-24 15:44 | PC.NURSE ---
5fu CADD pump attached to pt. +blood return, green light flashing, aquashield on and connections secure.
[2019-04-26 13:48] VITALS: BP 129/76; PULSE 85; RESP 20; TEMP 36.6; O2SAT 96
--- NOTE | 2019-04-26 14:16 | PC.NURSE ---
THROAT THICK/FLUSHING POST FOLFOX CYCLE 5: Patient in for pump disconnect. Reports throat feeling tight/thickened since Tuesday. He is also experiencing tingling in toungue, throat and fingers with cold. Face is somewhat flushed also per . Patient very fatigued, stating otherwise feeling fine. Report to Dr. Werner who stated patient could be discharged. Patient advised by nurse to go to ER if throat thickening worsens or facial/mouth swelling develops. Patient and voiced understanding.
[2019-05-01] MEDS: ALTEPLASE 2 MG/2 ML VIAL IV (10:56)
[2019-05-01 11:00] LABS: Add Manual Diff / Slide Review NO; Basophils Absolute Auto 0 /uL (0-100); Basophils Percent Auto 0.7 % (0-2); Eosinophils Absolute Auto 100 /uL (0-450); Eosinophils Percent Auto 2.8 % (2-4); Hematocrit 37.5 % (41-53); Hemoglobin 13.2 g/dL (13.5-17.5); Lymphocytes Absolute Auto 2200 /uL (1100-4500); Lymphocytes Percent Auto 48.2 % (25-40); Mean Corpuscular HGB Conc 35.1 % (30-36); Mean Corpuscular Hemoglobin 33.2 PG (26-34); Mean Corpuscular Volume 94.5 fL (80-100); Monocytes Absolute Auto 500 /uL (0-900); Monocytes Percent Auto 10.1 % (3-14); Neutrophils Absolute Auto 1700 /uL (1500-7000); Neutrophils Percent Auto 38.2 % (50-75); Platelet Count 80 X10^3/uL (150-400); Red Blood Cell Count 3.97 X10^6/uL (4.5-5.9); Red Cell Distribution Width 16.7 % (11.6-14.8); White Blood Cell Count 4.5 X10^3/uL (4.5-11.0)
[2019-05-01 11:09] LABS: Alanine Aminotransferase 26 IU/L (21-72); Albumin 4.5 g/dL (3.5-5.0); Albumin Globulin Ratio 1.3 (1.0-2.8); Alkaline Phosphatase 99 U/L (38-126); Aspartate Aminotransferase 44 IU/L (17-59); BUN Creatinine Ratio 18.8 (6-22); Bilirubin Total 0.8 mg/dL (0.2-1.3); Blood Urea Nitrogen 15 mg/dL (9-20); Calcium 9.4 mg/dL (8.4-10.2); Carbon Dioxide 26 mmol/L (22-32); Chloride 106 mmol/L (98-107); Estimated Glomerular Filt Rate > 60.0 mL/min (>60); Globulin 3.4 g/dL (1.7-4.1); Glucose 120 mg/dL (80-110); HEMOLYSIS < 15 (0-50); Potassium 4.2 mmol/L (3.4-5.1); Sodium 141 mmol/L (137-145); Total Protein 7.9 g/dL (6.3-8.2)
[2019-05-08 08:27] VITALS: BP 122/65; PULSE 73; RESP 16; TEMP 36.5; O2SAT 96
--- NOTE | 2019-05-08 08:44 | P.PNONC_ITS ---
PN -Subjective Interval history: Diagnosis: Rectal cancer, T4 N2 Previous treatment: 1. 5 cycles of neoadjuvant FOLFOX Interval history: The patient is a 78-year-old man who returns today for follow-up. He has recently been found to have a locally advanced rectal cancer. He is being treated with total neoadjuvant therapy. He has completed 5 cycles of FOLFOX thus far. He continues to tolerate his treatment fairly well. With his most recent cycle, he has had some increasing fatigue. He still able to walk up to 2 miles a day. He finds that he is moving a little bit more slowly and does need to stop and rest occasionally. He has had a recent upper respiratory infection. He has noted some dry cough but no fevers or chills. He is not having any pain in the chest. He feels like his symptoms are improving. He did have a delay due to some thrombocytopenia. He also has noted some increasing cold sensitivity as well as a little bit of numbness on the tips of his fingers on the bottoms of his feet. He is not having any pain. Bowels have been moving normally. No mouth sores or skin rash. He denies any other changes in his health. His past medical history is otherwise notable for ulcerative colitis. He has a history of prostate cancer treated with seeds. He has had several fractures. He does have a history of asbestos exposure. - Patient Self-Reported Symptoms SR Constitution: Fatigue/Malaise SR respiratory issues: Cough, Shortness of breath SR Cardiovascular issues: Shortness of breath with activity or lying flat SR Musculoskeletal issues: Muscle weakness Home Medications and Allergies Home Medications Medication Instructions Recorded Confirmed Type fluorouracil 5,300 mg IV NOW #1 device 01/23/19 04/17/19 Rx acetaminophen 650 mg PO Q6H PRN #30 cap 02/06/19 04/17/19 Rx ondansetron 8 mg PO Q8H #30 tab 02/13/19 04/17/19 Rx Allergies Allergy/AdvReac Type Severity Reaction Status Date / Time No Known Drug Allergies Allergy Verified 02/06/19 11:51 Exam Vital signs: Vital Signs Temp Pulse Resp BP Pulse Ox 05/08/19 08:27 97.7 F 73 16 122/65 96 Intake and Output 05/07/19 05/08/19 05/08/19 23:59 07:59 15:59 Other: Weight 100.3 kg Patient Weight 05/08/19 23:59 Weight 100.3 kg - Constitutional positive no acute distress, positive average body habitus - Routine HEENT Exam Head: Present: normocephalic, atraumatic Eye: Present: EOMI, PERRL. Absent: conjunctival icterus, scleral injection ENT: Present: mucous membranes moist, oropharynx clear - Routine Neck Exam Present: supple. Absent: lymphadenopathy, thyromegaly - Routine Respiratory Exam Present: Clear to auscultation bilaterally. Absent: rales, wheezes - Routine Cardiovascular Exam Present: RRR, S1, S2. Absent: murmur - Routine Abdominal Exam Present: soft, normoactive bowel sounds. Absent: tenderness, organomegaly, mass - Routine Extremities Exam Absent: cyanosis, clubbing, edema - Routine Back/Spine Exam Back/Spine: Absent: vertebral tenderness - Routine Skin Exam Present: intact. Absent: petechiae, rash - Routine Neurological Exam Present: alert, oriented X3 - Routine Psychiatric Exam Present: normal affect, normal thought process Results - Labs Laboratory Last Values WBC 4.5 X10^3/uL (4.5-11.0) 05/01/19 10: RBC 3.97 X10^6/uL (4.5-5.9) L 05/01/19 10:26 Hgb 13.2 g/dL (13.5-17.5) L 05/01/19 10:26 Hct 37.5 % (41-53) L 05/01/19 10:26 MCV 94.5 fL (80-100) 05/01/19 10:26 MCH 33.2 PG (26-34) 05/01/19 10:26 MCHC 35.1 % (30-36) 05/01/19 10:26 RDW 16.7 % (11.6-14.8) H 05/01/19 10:26 Plt Count 80 X10^3/uL (150-400) L 05/01/19 10:26 Neut % (Auto) 38.2 % (50-75) L 05/01/19 10:26 Lymph % (Auto) 48.2 % (25-40) H 05/01/19 10:26 [place] % (Auto) 10.1 % (3-14) 05/01/19 10:26 Eos % (Auto) 2.8 % (2-4) 05/01/19 10:26 Baso % (Auto) 0.7 % (0-2) 05/01/19 10:26 Neut # (Auto) 1700 /uL (9883-6901) 05/01/19 10:26 Lymph # (Auto) 2200 /uL (3643-4607) 05/01/19 10:26 [place] # (Auto) 500 /uL (0-900) 05/01/19 10:26 Eos # (Auto) 100 /uL (0-450) 05/01/19 10:26 Baso # (Auto) 0 /uL (0-100) 05/01/19 10:26 Sodium 141 mmol/L (137-145) 05/01/19 10:26 Potassium 4.2 mmol/L (3.4-5.1) 05/01/19 10:26 Chloride 106 mmol/L (98-107) 05/01/19 10:26 Carbon Dioxide 26 mmol/L (22-32) 05/01/19 10:26 BUN 15 mg/dL (9-20) 05/01/19 10:26 Creatinine 0.80 mg/dL (0.66-1.25) 05/01/19 10:26 Estimated GFR > 60.0 mL/min (>60) 05/01/19 10:26 BUN/Creatinine Ratio 18.8 (6-22) 05/01/19 10:26 Glucose 120 mg/dL (80-110) H 05/01/19 10:26 Calcium 9.4 mg/dL (8.4-10.2) 05/01/19 10:26 Total Bilirubin 0.8 mg/dL (0.2-1.3) 05/01/19 10:26 AST 44 IU/L (17-59) 05/01/19 10:26 ALT 26 IU/L (21-72) 05/01/19 10:26 Alkaline Phosphatase 99 U/L (38-126) 05/01/19 10:26 Total Protein 7.9 g/dL (6.3-8.2) 05/01/19 10:26 Albumin 4.5 g/dL (3.5-5.0) 05/01/19 10:26 Globulin 3.4 g/dL (1.7-4.1) 05/01/19 10:26 Albumin/Globulin Ratio 1.3 (1.0-2.8) 05/01/19 10:26 - Imaging Additional studies: Procedures Colonoscopy (01/14/12) Assessment and Plan (1) Rectal cancer Current visit: Yes Status: Acute 78-year-old man otherwise quite healthy with a new diagnosis of rectal cancer. He has a locally advanced tumor in a prior history of radiation to the prostate. He has been tolerating his neoadjuvant chemotherapy adequately but is having increasing fatigue, neuropathy and thrombocytopenia. Assuming his platelet count is okay today, will go ahead with his cycle but will dose reduce his oxaliplatin somewhat. I did get a note from his physicians in [place] that would like him to have 8 cycles of neoadjuvant therapy. We will plan for 2 additional cycles. He will return to clinic in about 2 weeks for follow-up but sooner should the need arise.
[2019-05-08] MEDS: ALTEPLASE 2 MG/2 ML VIAL IV (08:46)
[2019-05-08 09:04] LABS: Add Manual Diff / Slide Review NO; Basophils Absolute Auto 100 /uL (0-100); Basophils Percent Auto 0.9 % (0-2); Eosinophils Absolute Auto 200 /uL (0-450); Hematocrit 37.5 % (41-53); Hemoglobin 12.6 g/dL (13.5-17.5); Lymphocytes Absolute Auto 2200 /uL (1100-4500); Mean Corpuscular HGB Conc 33.7 % (30-36); Mean Corpuscular Hemoglobin 32.5 PG (26-34); Mean Corpuscular Volume 96.3 fL (80-100); Monocytes Absolute Auto 800 /uL (0-900); Monocytes Percent Auto 14.8 % (3-14); Neutrophils Absolute Auto 2300 /uL (1500-7000); Neutrophils Percent Auto 40.3 % (50-75); Platelet Count 80 X10^3/uL (150-400); Red Blood Cell Count 3.89 X10^6/uL (4.5-5.9); Red Cell Distribution Width 17.8 % (11.6-14.8); White Blood Cell Count 5.6 X10^3/uL (4.5-11.0)
[2019-05-08 09:23] LABS: Alanine Aminotransferase 21 IU/L (<50); Albumin 4.3 g/dL (3.5-5.0); Albumin Globulin Ratio 1.3 (1.0-2.8); Alkaline Phosphatase 100 U/L (38-126); Aspartate Aminotransferase 43 IU/L (17-59); BUN Creatinine Ratio 13.8 (6-22); Bilirubin Total 0.5 mg/dL (0.2-1.3); Blood Urea Nitrogen 11 mg/dL (9-20); Calcium 9.4 mg/dL (8.4-10.2); Carbon Dioxide 27 mmol/L (22-32); Chloride 102 mmol/L (98-107); Estimated Glomerular Filt Rate > 60.0 mL/min (>60); Globulin 3.3 g/dL (1.7-4.1); Glucose 107 mg/dL (80-110); HEMOLYSIS < 15 (0-50); Potassium 4.6 mmol/L (3.4-5.1); Sodium 138 mmol/L (137-145); Total Protein 7.6 g/dL (6.3-8.2)
[2019-05-08] MEDS: ONDANSETRON 16 MG in SODIUM CHLORIDE 0.9% 50 ML 232 ML IV (10:50)
[2019-05-08] MEDS: DEXTROSE 5 % IN WATER 100 ML 21 ML IV (11:12)
[2019-05-08] MEDS: LEUCOVORIN IV (11:26)
[2019-05-08] MEDS: DEXTROSE 5% IV ×2 (11:26→11:27)
[2019-05-08] MEDS: OXALIPLATIN IV (11:27)
[2019-05-08] MEDS: FLUOROURACIL IV (14:10)
[2019-05-08] MEDS: ISOOSMOTIC VEHICLE IV (14:10)
--- NOTE | 2019-05-08 14:50 | PC.NURSE ---
5fu cassette for CADD pump dose verified with [employer] [place]. connections secured; +blood return, aquashield used. green light on pump blinking.
[2019-05-15] MEDS: ALTEPLASE 2 MG/2 ML VIAL IV (14:10)
[2019-05-15 14:12] LABS: Hematocrit 36.4 % (41-53); Hemoglobin 12.4 g/dL (13.5-17.5); Mean Corpuscular Hemoglobin 32.7 PG (26-34); Mean Corpuscular Volume 96.1 fL (80-100); Platelet Count 91 X10^3/uL (150-400); Red Blood Cell Count 3.79 X10^6/uL (4.5-5.9); Red Cell Distribution Width 17.4 % (11.6-14.8); White Blood Cell Count 4.3 X10^3/uL (4.5-11.0)
[2019-05-15 14:13] LABS: Add Manual Diff / Slide Review YES
[2019-05-15 14:25] LABS: Alanine Aminotransferase 25 IU/L (<50); Albumin 4.1 g/dL (3.5-5.0); Albumin Globulin Ratio 1.3 (1.0-2.8); Alkaline Phosphatase 97 U/L (38-126); Aspartate Aminotransferase 41 IU/L (17-59); BUN Creatinine Ratio 22.9 (6-22); Bilirubin Total 0.5 mg/dL (0.2-1.3); Blood Urea Nitrogen 16 mg/dL (9-20); Carbon Dioxide 26 mmol/L (22-32); Chloride 104 mmol/L (98-107); Estimated Glomerular Filt Rate > 60.0 mL/min (>60); Globulin 3.1 g/dL (1.7-4.1); Glucose 100 mg/dL (80-110); HEMOLYSIS < 15 (0-50); Potassium 4.2 mmol/L (3.4-5.1); Sodium 139 mmol/L (137-145); Total Protein 7.2 g/dL (6.3-8.2)
[2019-05-15 14:41] LABS: Neutrophils Absolute Manual 602 /uL (3000-5900); Total Cells Counted 100
[2019-05-15 14:42] LABS: Anisocytosis 2+
[2019-05-22 08:59] LABS: Add Manual Diff / Slide Review NO; Basophils Absolute Auto 0 /uL (0-100); Basophils Percent Auto 0.6 % (0-2); Eosinophils Absolute Auto 100 /uL (0-450); Eosinophils Percent Auto 3.4 % (2-4); Hematocrit 36.3 % (41-53); Hemoglobin 12.4 g/dL (13.5-17.5); Lymphocytes Absolute Auto 1900 /uL (1100-4500); Lymphocytes Percent Auto 45.7 % (25-40); Mean Corpuscular HGB Conc 34.1 % (30-36); Mean Corpuscular Volume 96.8 fL (80-100); Monocytes Absolute Auto 600 /uL (0-900); Monocytes Percent Auto 14.3 % (3-14); Neutrophils Absolute Auto 1500 /uL (1500-7000); Platelet Count 60 X10^3/uL (150-400); Red Blood Cell Count 3.75 X10^6/uL (4.5-5.9); Red Cell Distribution Width 18.2 % (11.6-14.8); White Blood Cell Count 4.2 X10^3/uL (4.5-11.0)
[2019-05-22 09:02] VITALS: BP 127/49; PULSE 87; RESP 16; TEMP 36.3; O2SAT 94
[2019-05-22 09:10] LABS: Alanine Aminotransferase 24 IU/L (<50); Albumin 3.8 g/dL (3.5-5.0); Albumin Globulin Ratio 1.2 (1.0-2.8); Alkaline Phosphatase 85 U/L (38-126); Aspartate Aminotransferase 42 IU/L (17-59); Bilirubin Total 0.5 mg/dL (0.2-1.3); Blood Urea Nitrogen 16 mg/dL (9-20); Carbon Dioxide 27 mmol/L (22-32); Chloride 107 mmol/L (98-107); Estimated Glomerular Filt Rate > 60.0 mL/min (>60); Globulin 3.2 g/dL (1.7-4.1); Glucose 141 mg/dL (80-110); HEMOLYSIS 21 (0-50); Sodium 139 mmol/L (137-145)
[2019-05-22] MEDS: ALTEPLASE 2 MG/2 ML VIAL IV (09:11)
--- NOTE | 2019-05-22 09:11 | ONC.PN ---
PN -Subjective Interval history: Diagnosis: Rectal cancer, T4 N2 Previous treatment: 1. 6 cycles of neoadjuvant FOLFOX Interval history: The patient is a 78-year-old man who returns today for follow-up. He has recently been found to have a locally advanced rectal cancer. He is being treated with total neoadjuvant therapy. He has completed 6 cycles of FOLFOX thus far. He did have a dose reduction on his oxaliplatin with the last cycle. He has having some cold sensitivity but just last for a few days. He is not having any nausea or vomiting. His appetite has been good. Strength and energy level have been somewhat low. He has noted a little bit more fatigue. He is not having any diarrhea. No mouth sores or skin rash. No unusual bleeding or bruising. Next week, he did have some sore throat and a little bit of a cough. He noticed some swollen lymph nodes in his neck. Those symptoms have since resolved. He denies any other changes in his health. His past medical history is otherwise notable for ulcerative colitis. He has a history of prostate cancer treated with seeds. He has had several fractures. He does have a history of asbestos exposure. - Patient Self-Reported Symptoms SR Constitution: Weight loss/gain, Fatigue/Malaise SR ears, nose, mouth, throat issues: Congestion, Cough, Swollen glands SR respiratory issues: Cough, Shortness of breath SR Cardiovascular issues: Shortness of breath with activity or lying flat SR Musculoskeletal issues: Muscle weakness SR Neuro issues: Numbness or tingling SR Endocrine issues: Cold intolerance Home Medications and Allergies Home Medications Medication Instructions Recorded Confirmed Type fluorouracil 5,300 mg IV NOW #1 device 01/23/19 05/22/19 Rx acetaminophen 650 mg PO Q6H PRN #30 cap 02/06/19 05/22/19 Rx ondansetron 8 mg PO Q8H #30 tab 02/13/19 05/22/19 Rx Allergies Allergy/AdvReac Type Severity Reaction Status Date / Time No Known Drug Allergies Allergy Verified 02/06/19 11:51 Exam Vital signs: Vital Signs Temp Pulse Resp BP Pulse Ox 05/22/19 09:02 97.3 F L 87 16 127/49 L 94 Intake and Output 05/21/19 05/22/19 05/22/19 23:59 07:59 15:59 Other: Weight 101.3 kg Patient Weight 05/22/19 23:59 Weight 101.3 kg - Constitutional positive no acute distress, positive average body habitus - Routine HEENT Exam Head: Present: normocephalic, atraumatic Eye: Present: EOMI, PERRL. Absent: conjunctival icterus, scleral injection ENT: Present: mucous membranes moist, oropharynx clear - Routine Neck Exam Present: supple. Absent: lymphadenopathy, thyromegaly - Routine Respiratory Exam Present: Clear to auscultation bilaterally. Absent: rales, wheezes - Routine Cardiovascular Exam Present: RRR, S1, S2. Absent: murmur - Routine Abdominal Exam Present: soft, normoactive bowel sounds. Absent: tenderness, organomegaly, mass - Routine Extremities Exam Absent: cyanosis, clubbing, edema - Routine Back/Spine Exam Back/Spine: Absent: vertebral tenderness - Routine Skin Exam Present: intact. Absent: petechiae, rash - Routine Neurological Exam Present: alert, oriented X3 - Routine Psychiatric Exam Present: normal affect, normal thought process Results - Labs Laboratory Last Values WBC 4.2 X10^3/uL (4.5-11.0) L 05/22/19 08:45 RBC 3.75 X10^6/uL (4.5-5.9) L 05/22/19 08:45 Hgb 12.4 g/dL (13.5-17.5) L 05/22/19 08:45 Hct 36.3 % (41-53) L 05/22/19 08:45 MCV 96.8 fL (80-100) 05/22/19 08:45 MCH 33.0 PG (26-34) 05/22/19 08:45 MCHC 34.1 % (30-36) 05/22/19 08:45 RDW 18.2 % (11.6-14.8) H 05/22/19 08:45 Plt Count 60 X10^3/uL (150-400) L 05/22/19 08:45 Neut % (Auto) 36.0 % (50-75) L 05/22/19 08:45 Lymph % (Auto) 45.7 % (25-40) H 05/22/19 08:45 [place] % (Auto) 14.3 % (3-14) H 05/22/19 08:45 Eos % (Auto) 3.4 % (2-4) 05/22/19 08:45 Baso % (Auto) 0.6 % (0-2) 05/22/19 08:45 Neut # (Auto) 1500 /uL (5853-9384) 05/22/19 08:45 Lymph # (Auto) 1900 /uL (5826-9982) 05/22/19 08:45 [place] # (Auto) 600 /uL (0-900) 05/22/19 08:45 Eos # (Auto) 100 /uL (0-450) 05/22/19 08:45 Baso # (Auto) 0 /uL (0-100) 05/22/19 08:45 Total Counted 100 05/15/19 14:05 Seg Neutrophils % 14.0 % (38-70) L 05/15/19 14:05 Lymphocytes % (Manual) 74.0 % (25-45) H 05/15/19 14:05 Monocytes % (Manual) 7.0 % (2-11) 05/15/19 14:05 Eosinophils % (Manual) 5.0 % (2-4) H 05/15/19 14:05 Neutrophils # (Manual) 602 /uL (4318-3479) L 05/15/19 14:05 RBC Morphology See below 05/15/19 14:05 Anisocytosis 2+ H 05/15/19 14:05 Sodium 139 mmol/L (137-145) 05/15/19 14:05 Potassium 4.2 mmol/L (3.4-5.1) 05/15/19 14:05 Chloride 104 mmol/L (98-107) 05/15/19 14:05 Carbon Dioxide 26 mmol/L (22-32) 05/15/19 14:05 BUN 16 mg/dL (9-20) 05/15/19 14:05 Creatinine 0.70 mg/dL (0.66-1.25) 05/15/19 14:05 Estimated GFR > 60.0 mL/min (>60) 05/15/19 14:05 BUN/Creatinine Ratio 22.9 (6-22) H 05/15/19 14:05 Glucose 100 mg/dL (80-110) 05/15/19 14:05 Calcium 9.0 mg/dL (8.4-10.2) 05/15/19 14:05 Total Bilirubin 0.5 mg/dL (0.2-1.3) 05/15/19 14:05 AST 41 IU/L (17-59) 05/15/19 14:05 ALT 25 IU/L (<50) 05/15/19 14:05 Alkaline Phosphatase 97 U/L (38-126) 05/15/19 14:05 Total Protein 7.2 g/dL (6.3-8.2) 05/15/19 14:05 Albumin 4.1 g/dL (3.5-5.0) 05/15/19 14:05 Globulin 3.1 g/dL (1.7-4.1) 05/15/19 14:05 Albumin/Globulin Ratio 1.3 (1.0-2.8) 05/15/19 14:05 - Imaging Additional studies: Procedures Colonoscopy (01/14/12) Assessment and Plan (1) Rectal cancer Current visit: Yes Status: Acute 78-year-old man otherwise quite healthy with a new diagnosis of rectal cancer. He has a locally advanced tumor with a prior history of radiation to the prostate. He has been tolerating his neoadjuvant chemotherapy adequately has had delay dose reduction due to thrombocytopenia. His platelet count today is only 60. Will delay 1 week. He will return to clinic here on Tuesday next week for his 7th cycle of treatment. He will be due for a total of 8.
[2019-05-28] MEDS: ALTEPLASE 2 MG/2 ML VIAL IV (09:05)
[2019-05-28 09:20] LABS: Add Manual Diff / Slide Review NO; Basophils Absolute Auto 0 /uL (0-100); Eosinophils Absolute Auto 100 /uL (0-450); Eosinophils Percent Auto 3.4 % (2-4); Hematocrit 37.1 % (41-53); Hemoglobin 12.7 g/dL (13.5-17.5); Lymphocytes Absolute Auto 2100 /uL (1100-4500); Lymphocytes Percent Auto 51.2 % (25-40); Mean Corpuscular HGB Conc 34.3 % (30-36); Mean Corpuscular Hemoglobin 33.5 PG (26-34); Mean Corpuscular Volume 97.8 fL (80-100); Monocytes Absolute Auto 600 /uL (0-900); Neutrophils Absolute Auto 1200 /uL (1500-7000); Neutrophils Percent Auto 29.4 % (50-75); Platelet Count 81 X10^3/uL (150-400); Red Cell Distribution Width 17.8 % (11.6-14.8); White Blood Cell Count 4.1 X10^3/uL (4.5-11.0)
[2019-05-28 09:34] LABS: Alanine Aminotransferase 25 IU/L (<50); Albumin Globulin Ratio 1.3 (1.0-2.8); Alkaline Phosphatase 98 U/L (38-126); Aspartate Aminotransferase 45 IU/L (17-59); BUN Creatinine Ratio 23.8 (6-22); Bilirubin Total 0.5 mg/dL (0.2-1.3); Blood Urea Nitrogen 19 mg/dL (9-20); Calcium 9.2 mg/dL (8.4-10.2); Carbon Dioxide 25 mmol/L (22-32); Chloride 108 mmol/L (98-107); Estimated Glomerular Filt Rate > 60.0 mL/min (>60); Globulin 3.2 g/dL (1.7-4.1); Glucose 110 mg/dL (80-110); HEMOLYSIS < 15 (0-50); Potassium 4.3 mmol/L (3.4-5.1); Sodium 140 mmol/L (137-145); Total Protein 7.2 g/dL (6.3-8.2)
[2019-05-28 10:20] VITALS: BP 108/56; PULSE 70; RESP 18; TEMP 36.4; O2SAT 96
[2019-05-28] MEDS: ONDANSETRON 16 MG in SODIUM CHLORIDE 0.9% 50 ML 232 ML IV (11:38)
[2019-05-28] MEDS: DEXTROSE 5 % IN WATER 100 ML 21 ML IV (11:39)
[2019-05-28] MEDS: OXALIPLATIN IV (12:26)
[2019-05-28] MEDS: DEXTROSE 5% IV ×2 (12:26)
[2019-05-28] MEDS: LEUCOVORIN IV (12:26)
[2019-05-28] MEDS: ISOOSMOTIC VEHICLE IV (15:01)
[2019-05-28] MEDS: FLUOROURACIL IV (15:01)
--- NOTE | 2019-05-28 15:58 | PC.NURSE ---
CADD pump connected, +blood return, green light verified with patient. Pt stable upon discharge will return in 46 hours for pump d/c.
[2019-05-30 13:43] VITALS: BP 119/69; PULSE 77; RESP 20; TEMP 36.6; O2SAT 95
--- NOTE | 2019-05-30 13:53 | PC.NURSE ---
pt came in for pump d/c, infusion complete, deaccessed port per protocol. Pt red in face and c/o SOB, doc and triage nurse notified.
--- NOTE | 2019-05-30 16:25 | PC.NURSE ---
PATIENT IN FOR 5FU PUMP DISCONNECT. FACE APPEARS FLUSHED, PATIENT STATES HE CONTINUES TO HAVE WITH EACH PUMP INFUSION DEVELOPMENT OF SORE THROAT WITH SLIGHT DIFFICULTY IN SWALLOWING, HE ALSO GETS MORE SHORT OF BREATH ALTHOUGH HE WAS ABLE TO TAKE A 2 MILE HILLY WALK YESTERDAY. LUNGS HAVE COARSE CRACKLES BUT PATIENT SAYS HE HAS BEEN GETING THIS EVER SINCE HAVING WORKED WITH [employer]. THIS NURSE REQUESTED DR MINOR TO EVALUATE WHO STATED PATIENT COULD BE DISCHARGED.
--- NOTE | 2019-06-04 14:30 | PC.NURSE ---
Patient called at 0830 this morning reporting that he had developed a strong pain in both shoulders on Tue. night after pump removed, he has been controlling it with tylenol and reports no pain at time of this call. He states SOB was increased and occuring with very short distances (from room to room in house), he feels congestion in his chest and finds often that SOB worsens while supine and he has to sit up again. He was able to speak clearly on phone without audible breathing difficulty. This nurse advised patient to go to ER this am. Patient agreed and said he would have his drive him to [place] ER.
[2019-06-12] MEDS: ALTEPLASE 2 MG/2 ML VIAL IV (09:00)
[2019-06-12 09:26] LABS: Add Manual Diff / Slide Review NO; Basophils Absolute Auto 0 /uL (0-100); Basophils Percent Auto 0.4 % (0-2); Eosinophils Absolute Auto 200 /uL (0-450); Hemoglobin 12.8 g/dL (13.5-17.5); Lymphocytes Absolute Auto 2300 /uL (1100-4500); Mean Corpuscular HGB Conc 34.6 % (30-36); Mean Corpuscular Volume 98.2 fL (80-100); Monocytes Absolute Auto 800 /uL (0-900); Monocytes Percent Auto 14.2 % (3-14); Neutrophils Absolute Auto 2100 /uL (1500-7000); Neutrophils Percent Auto 38.4 % (50-75); Platelet Count 91 X10^3/uL (150-400); Red Blood Cell Count 3.77 X10^6/uL (4.5-5.9); Red Cell Distribution Width 16.8 % (11.6-14.8); White Blood Cell Count 5.4 X10^3/uL (4.5-11.0)
[2019-06-12 09:30] LABS: Alanine Aminotransferase 23 IU/L (<50); Albumin 4.1 g/dL (3.5-5.0); Albumin Globulin Ratio 1.2 (1.0-2.8); Alkaline Phosphatase 113 U/L (38-126); Aspartate Aminotransferase 44 IU/L (17-59); BUN Creatinine Ratio 17.5 (6-22); Bilirubin Total 0.6 mg/dL (0.2-1.3); Blood Urea Nitrogen 14 mg/dL (9-20); Carbon Dioxide 25 mmol/L (22-32); Chloride 105 mmol/L (98-107); Estimated Glomerular Filt Rate > 60.0 mL/min (>60); Globulin 3.3 g/dL (1.7-4.1); Glucose 101 mg/dL (80-110); HEMOLYSIS < 15 (0-50); Potassium 4.5 mmol/L (3.4-5.1); Sodium 138 mmol/L (137-145); Total Protein 7.4 g/dL (6.3-8.2)
--- NOTE | 2019-06-12 09:49 | ONC.MSW ---
*Provided Last Chemo Card
[2019-06-12] MEDS: ONDANSETRON 16 MG in SODIUM CHLORIDE 0.9% 50 ML 232 ML IV (10:21)
[2019-06-12] MEDS: DEXTROSE 5% IV ×2 (11:17→11:18)
[2019-06-12] MEDS: LEUCOVORIN IV (11:17)
[2019-06-12] MEDS: OXALIPLATIN IV (11:18)
--- NOTE | 2019-06-12 12:33 | P.PNONC_ITS ---
PN -Subjective Interval history: Diagnosis: Rectal cancer, T4 N2 Previous treatment: 1. 7 cycles of neoadjuvant FOLFOX Interval history: The patient is a 78-year-old man who returns today for follow-up. He has recently been found to have a locally advanced rectal cancer. He is being treated with total neoadjuvant therapy. He has completed 7 cycles of FOLFOX thus far. He did have a dose reduction on his oxaliplatin with the last cycle. He is due for his 8th and final cycle today. With the last cycle, he noticed some shoulder pain. He took some Tylenol on seem to resolve. He also had some increasing shortness of breath. He was evaluated in the emergency room. He had a CT scan that did not show any pulmonary embolus or pneumonia. He was treated with albuterol and his symptoms have improved as well. He has having some cold sensitivity but just last for a few days. He is not having any nausea or vomiting. His appetite has been good. Strength and energy level have been somewhat low. He has noted a little bit more fatigue. He is not having any diarrhea. No mouth sores or skin rash. No unusual bleeding or bruising. He is scheduled for an appointment in [place] on Tuesday. He denies any other changes in his health. His past medical history is otherwise notable for ulcerative colitis. He has a history of prostate cancer treated with seeds. He has had several fractures. He does have a history of asbestos exposure. - Patient Self-Reported Symptoms SR Constitution: Weight loss/gain, Fatigue/Malaise SR ears, nose, mouth, throat issues: Congestion, Cough, Swollen glands SR respiratory issues: Cough, Shortness of breath SR Cardiovascular issues: Shortness of breath with activity or lying flat SR Musculoskeletal issues: Muscle weakness SR Neuro issues: Numbness or tingling SR Endocrine issues: Cold intolerance Home Medications and Allergies Home Medications Medication Instructions Recorded Confirmed Type fluorouracil 5,300 mg IV NOW #1 device 01/23/19 05/22/19 Rx acetaminophen 650 mg PO Q6H PRN #30 cap 02/06/19 05/22/19 Rx ondansetron 8 mg PO Q8H #30 tab 02/13/19 05/22/19 Rx albuterol sulfate 2 puff INHALATION Q4-6H PRN #18 06/04/19 Rx gram loratadine [Claritin] 10 mg PO DAILY PRN #30 tab 06/04/19 Rx Allergies Allergy/AdvReac Type Severity Reaction Status Date / Time No Known Drug Allergies Allergy Verified 02/06/19 11:51 Exam Vital signs: Intake and Output 06/11/19 06/12/19 06/12/19 23:59 07:59 15:59 Intake Total 111 / 111 Balance 111 111 Intake: IV 111 Ondansetron 16 mg In Sodium 58 / 58 Chloride 0.9% 50 ml @ 232 mls/ hr IV [facility] Rx#:[id number] dexAMETHasone 12 mg In Sodium 53 / 53 Chloride 0.9% 50 ml @ 212 mls/ hr IV [facility] Rx#:[id number] - Constitutional positive no acute distress, positive average body habitus - Routine HEENT Exam Head: Present: normocephalic, atraumatic Eye: Present: EOMI, PERRL. Absent: conjunctival icterus ENT: Present: mucous membranes moist, oropharynx clear - Routine Neck Exam Present: supple. Absent: lymphadenopathy - Routine Respiratory Exam Present: Clear to auscultation bilaterally. Absent: rales, wheezes - Routine Cardiovascular Exam Present: RRR, S1, S2. Absent: murmur - Routine Abdominal Exam Present: soft, normoactive bowel sounds. Absent: tenderness, organomegaly, mass Results - Labs Laboratory Last Values WBC 5.4 X10^3/uL (4.5-11.0) 06/12/19 09:00 RBC 3.77 X10^6/uL (4.5-5.9) L 06/12/19 09:00 Hgb 12.8 g/dL (13.5-17.5) L 06/12/19 09:00 Hct 37.0 % (41-53) L 06/12/19 09:00 MCV 98.2 fL (80-100) 06/12/19 09:00 MCH 34.0 PG (26-34) 06/12/19 09:00 MCHC 34.6 % (30-36) 06/12/19 09:00 RDW 16.8 % (11.6-14.8) H 06/12/19 09:00 Plt Count 91 X10^3/uL (150-400) L 06/12/19 09:00 Neut % (Auto) 38.4 % (50-75) L 06/12/19 09:00 Lymph % (Auto) 43.0 % (25-40) H 06/12/19 09:00 [place] % (Auto) 14.2 % (3-14) H 06/12/19 09:00 Eos % (Auto) 4.0 % (2-4) 06/12/19 09:00 Baso % (Auto) 0.4 % (0-2) 06/12/19 09:00 Neut # (Auto) 2100 /uL (5532-6458) 06/12/19 09:00 Lymph # (Auto) 2300 /uL (1533-2282) 06/12/19 09:00 [place] # (Auto) 800 /uL (0-900) 06/12/19 09:00 Eos # (Auto) 200 /uL (0-450) 06/12/19 09:00 Baso # (Auto) 0 /uL (0-100) 06/12/19 09:00 Total Counted 100 05/15/19 14:05 Seg Neutrophils % 14.0 % (38-70) L 05/15/19 14:05 Lymphocytes % (Manual) 74.0 % (25-45) H 05/15/19 14:05 Monocytes % (Manual) 7.0 % (2-11) 05/15/19 14:05 Eosinophils % (Manual) 5.0 % (2-4) H 05/15/19 14:05 Neutrophils # (Manual) 602 /uL (7420-7897) L 05/15/19 14:05 RBC Morphology See below 05/15/19 14:05 Anisocytosis 2+ H 05/15/19 14:05 Sodium 138 mmol/L (137-145) 06/12/19 09:00 Potassium 4.5 mmol/L (3.4-5.1) 06/12/19 09:00 Chloride 105 mmol/L (98-107) 06/12/19 09:00 Carbon Dioxide 25 mmol/L (22-32) 06/12/19 09:00 BUN 14 mg/dL (9-20) 06/12/19 09:00 Creatinine 0.80 mg/dL (0.66-1.25) 06/12/19 09:00 Estimated GFR > 60.0 mL/min (>60) 06/12/19 09:00 BUN/Creatinine Ratio 17.5 (6-22) 06/12/19 09:00 Glucose 101 mg/dL (80-110) 06/12/19 09:00 Calcium 9.0 mg/dL (8.4-10.2) 06/12/19 09:00 Total Bilirubin 0.6 mg/dL (0.2-1.3) 06/12/19 09:00 AST 44 IU/L (17-59) 06/12/19 09:00 ALT 23 IU/L (<50) 06/12/19 09:00 Alkaline Phosphatase 113 U/L (38-126) 06/12/19 09:00 Total Protein 7.4 g/dL (6.3-8.2) 06/12/19 09:00 Albumin 4.1 g/dL (3.5-5.0) 06/12/19 09:00 Globulin 3.3 g/dL (1.7-4.1) 06/12/19 09:00 Albumin/Globulin Ratio 1.2 (1.0-2.8) 06/12/19 09:00 - Imaging Additional studies: Procedures Colonoscopy (01/14/12) Assessment and Plan (1) Rectal cancer Current visit: Yes Status: Acute 78-year-old man rectal cancer. He has a locally advanced tumor with a prior history of radiation to the prostate. He has been tolerating his neoadjuvant chemotherapy adequately although he has had a delay and dose reduction due to thrombocytopenia. His platelet count today is adequate. He will proceed with his final cycle of neoadjuvant chemotherapy today. He will follow up here short ly after new year's. He will then be due for neoadjuvant radiation. I would anticipate that this would be given with Xeloda.
[2019-06-12] MEDS: FLUOROURACIL IV (13:55)
[2019-06-12] MEDS: ISOOSMOTIC VEHICLE IV (13:55)
--- NOTE | 2019-06-12 15:10 | PC.NURSE ---
Addendum entered by Kira Cavazos R.N. 06/12/19 15:47: verified with second RNNevin Original Note: CADD pump settings verified with second RNKira. Blood return confirmed. Equa-shield in place. Clear dressing CDI. Pump infusing w/o difficulty.
--- NOTE | 2019-06-12 17:07 | ONC.SCHED ---
Scheduled pump disconnect and patient said they would call back to schedule f/u in the new year.
--- NOTE | 2019-06-14 13:11 | PC.NURSE ---
pump disconnected and pt de-accessed. face slight redness, reports B/L shoulders feeling coming out of joint, mild SOB and throat feels swollen. notified bucky [place]
--- NOTE | 2019-06-28 11:32 | PC.NURSE ---
Capecitabine scripts transmitted electronically to [facility]. Cody Hirsch RPh
--- NOTE | 2019-07-10 13:15 | PC.NURSE ---
CAPCETABINE COULD NOT BE FILLED AT [facility] BUT PATIENT WAS NOT NOTIFIED AND FOUND THIS OUT TUESDAY BEFORE HE WAS TO START RADIATION ON 07/09/19. HE WAS ABLE TO GET THE 500MG TABS FILLED AT [facility]. NO 150 MG TABS AVAILABLE EARLY ENOUGH TO TAKE THE [address] FERNANDES IT WAS OK TO TAKE THE 1500 BID UNTIL TABLETS AVAILABLE. PATIENT WAS ABLE TO SET UP 150MG RX AT [facility] AT [phone] AND WILL PICK THESE UP ON TUE. 07/11/19.
--- NOTE | 2019-07-16 13:30 | PC.NURSE ---
LABS WHILE ON ORAL 5FU/RADIATION: [facility] CALLED AND WOULD LIKE TO KNOW WHICH LABS SHOULD BE MONITORED DURING THE TIME THIS PATIENT IS ON THIS THERAPY. HE STARTED ON O WAND WILL CONTINUE FOR THE MONTH OF JULY. TRIAGE SHOULD CALL ALBA AT [phone] TO INFORM HER OF DR. FERNANDES'S LAB ORDERS.
--- NOTE | 2019-07-17 13:03 | PC.NURSE ---
INFORMED PATIENT RE OF DR MINOR PER TELEPHONE TO [facility] WHILE PATIENT IS TEMPORARILY RESIDING IN [place] FOR [facility].
--- NOTE | 2019-07-18 11:36 | ONC.SCHED ---
[facility] pt notified of Dr. Guy's situation.
--- NOTE | 2019-08-13 16:32 | PC.NURSE ---
CAPCETABINE: PATIENT CALLED REPORTING THAT HE WILL COMPLETE RADIATION ON THIS WED. HE WOULD LIKE TO KNOW WHETHER HE SHOULD COMPLETE TAKING ANY REMAINING PILLS (HE HAS FOR 3 DAYS FOLLOWING RADIATION).
--- NOTE | 2019-09-25 09:00 | PC.NURSE ---
PORT-A-CATH CLOT AND MISPLACEMENT WAS DISCOVERED IN [place] [facility] AND REPORTED BY PATIENT THIS AM. DR. YE TOLD HIM THERE IS A SMALL THROMBOSIS AT THE END OF THE CATHETER AND PUT HIM ON ANTI-COAG INJECTIONS BID. HE WAS ALSO TOLD THAT THE CATHETER IS NOT IN THE CORRECT PLACEMENT AND DR YE PREFERS HIM NOT TO BE ON ANTI-COAGULANTS AND REQUESTED PATIENT TO CALL DR FERNANDES FOR FURTHER INSTRUCTION TO WHAT TO DO WITH THE PORTACATH. IN ADDITION PATIENT PASSED ON THE INFORMATION THAT HE WAS TOLD THE MRI AND CT LOOK GOOD, SO MUCH SO THAT THEY HAVE DECIDED TO POSTPONE THE SURGERY DUE TO COVID VIRUS SITUATION AND JIAN'S COMPROMISED LUNGS. REQUEST WITH THIS NOTE TO DR FERNANDES FOR FURTHER INSTRUCTION TO PATIENT.
--- NOTE | 2019-09-27 11:06 | PC.NURSE ---
Spoke with RN, Cathryn from [facility]. According to Cathryn pt had complete response to therapy and colorectal surgery is no longer needed at this time. Cathryn also informed this typewriters functional tester that their office refilled pt's SQ anti coagulant injections r/t to clot around port that was found by their facility. Per Cathryn, pt has appt with museum archivist tomorrow r/t to decreasing sats and SOB, no PE was detected upon imaging at their facility. Also Cathryn informed this typewriters functional tester that pt was negative for COVID 19. Requested visit history documentation and provided fax number to Cathryn. Dr. Werner aware, orders placed for surgery consult and f/u appt with Dr. Werner. Spoke with pt, pt aware of orders placed and plan for port removal. Instructed pt to be assessed by emergency services if he experiences respiratory distress, symptoms of respiratory distress reviewed, pt verbalized understanding. Schedulers aware of new orders for pt.
--- NOTE | 2019-09-27 12:36 | ONC.SCHED ---
Faxed referral with [facility] notes to [facility] for port removal.
--- NOTE | 2019-10-15 11:50 | ONC.MSW ---
Description: Palliative Care Referral Activity: Faxed referral for palliative care to [facility] for symptom management assistance, per pt request.
--- NOTE | 2019-10-15 14:22 | PC.NURSE ---
COUGH, SOB, DESAT WITH EXERTION: PATIENT CALLED WITH REPORTING COUGH EVERY TIME HE LAYS HORIZONTAL LASTING 90 MIN. AT NIGHT, DESATURATION DOWN TO LOW 70S WHEN WALKING TO BATHROOM ON OXYGEN, CLOTTING IN NOSE MAKING HIM MOVE OXYGEN CANNULA TO MOUTH UNTIL HE CAN CLEAN OUT NOSE, DIAHRREA DAILY, LE EDEMA, PATIENT REQUESTING RECOMMENDATION FOR COUGH AND NASAL CLOTTING MANAGEMENT. HE WAS IN ER TWICE IN LAST 3 WEEKS. COVID AND PULMONARY EMBOLISM WERE RULED OUT. REPORT TO DR FERNANDES WHO ORDERED PATIENT TO STOP LOVENOX TONIGHT AND START ELIQUIS TOMORROW AM (ORDER ESCRIBED TO [facility]), PATIENT INSTRUCTED TO CONTACT SENIOR ENERGY ANALYST RE COUGHING, F/U HERE TO BE MOVED TO NEXT EARLIEST POSSIBILITY FROM THE 10/31 APPT, SCHEDULERS INFORMED. PATIENT INSTRUCTED TO USE SALINE SPRAY TO MOISTEURIZE AND CLEAN NOSTRILS AND AFTER DRYING TO APPLY A WATER BASED VASELINE.
[2019-10-18 16:25] VITALS: BP 116/74; PULSE 88; RESP 22; TEMP 36.1; O2SAT 99
--- NOTE | 2019-10-18 16:26 | ONC.PN ---
PN -Subjective Interval history: ID/CC: 79 year old male with rectal cancer, T4 N2 History of Present Illness: Mr. Butcher is a 79-year-old ma with known history of prostate cancer and ulcerative colitis. 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 Biopsy showed CONSTANTINO/MMR proficient. He underwent total neoadjuvant FOLFOX x 8 cycles from 02/13/2019 trough 06/13/2019. Then, he completed concurrent Xeloda with Proton radiation therapy at [facility] from 07/09/2019 to 08/15/2019. This case was discussed at multidisciplinary tumor Board at [facility]. Patient's MRI showed complete response. No discrete masses or lesions were visualized endoscopically. Patient has worsening pulmonary function, as a result the tumor board recommend watch and wait approach over surgical resection at this time. During the chemotherapy, patient started shortness of breath. Patient has previous exposure to asbestos. Patient's sats occasionally dropped to 70% range with activity at home. 09/21/2019, CT scan showed thrombus at the tip of the Port-A-Cath. Therefore patient was started on anticoagulation initially with enoxaparin subsequently switched to Eliquis. Patient was treated with prednisone during the chemotherapy. Recently he was evaluated by Jonn Vizcarra a geologic technician at [facility] 09/28/2019. Pulmonary fibrosis exacerbation with hypoxemia/ground-glass opacities were thought to be due to chemotherapy for rectal cancer. Patient was restarted on high-dose steroids prednisone 60 mg once a day with detailed tapering instructions. Patient is post 2 follow-up with Dr. Wolf in about a month. Patient was also started on home oxygen. He is using at the clinic 3 liters/minute. Clinically, patient is accompanied by his to the clinic. He has significant shortness breath. Is using oxygen 3 liters/minute. He said he has exceedingly severe shortness of breath. He is also very fatigued. Otherwise he reports that the bowel movement has been relatively is normal. No blood in the stool. He denies any abdominal pain. He denies fever or chills. He denies headache double vision or blurred vision. - Patient Self-Reported Symptoms SR Constitution: Weight loss/gain, Fatigue/Malaise SR ears, nose, mouth, throat issues: Congestion, Cough, Swollen glands SR respiratory issues: Cough, Shortness of breath SR Cardiovascular issues: Shortness of breath with activity or lying flat SR Musculoskeletal issues: Muscle weakness SR Neuro issues: Numbness or tingling SR Endocrine issues: Cold intolerance - Additional ROS All systems PM: reviewed and no additional remarkable complaints except as stated (those mentioned in HPI, Interval History and SR above.) Home Medications and Allergies Home Medications Medication Instructions Recorded Confirmed Type fluorouracil 5,300 mg IV NOW #1 device 01/23/19 05/22/19 Rx acetaminophen 650 mg PO Q6H PRN #30 cap 02/06/19 10/18/19 Rx albuterol sulfate 2 puff INHALATION Q4-6H PRN #18 06/04/19 10/18/19 Rx gram furosemide 20 mg PO DAILY #7 tab 10/02/19 10/18/19 Rx apixaban [Eliquis] 5 mg PO BID #60 tab 10/15/19 10/18/19 Rx prednisone 60 mg PO DAILY 10/18/19 10/18/19 History Allergies Allergy/AdvReac Type Severity Reaction Status Date / Time No Known Drug Allergies Allergy Verified 02/06/19 11:51 Exam Vital signs: Last Vital Signs Temp 97 F L 10/18/19 16:25 Pulse 88 10/18/19 16:25 Resp 22 10/18/19 16:25 BP 116/74 10/18/19 16:25 Pulse Ox 99 10/18/19 16:25 Narrative: COG 1 Vitals above reviewed Constitutional: WDWN, well nourished, NAD, in wheelchair, cooperative. HEENT: NCAT, EOMI, PERRLA. Anicteric sclera. Neck: Supple and symmetrical, no palpable masses. No palpable thyromegaly. Respiratory: Labored breathing noted. Fine crackles heard in both lungs. Cardiovascular: RRR, S1 and S2 normal, no M/G/R. No edema of lower extremities. Abdomen: Soft, NTND, no palpable masses. No palpable hepatosplenomegaly. No hernia. Neurological: CN II-XII grossly intact. No focal motor or sensory deficit. Psychiatric: Normal judgment and insight. AOx3. Normal memory (recent and remote). Normal mood and affect. Results - Labs Laboratory Last Values WBC 5.4 X10^3/uL (4.5-11.0) 06/12/19 09:00 RBC 3.77 X10^6/uL (4.5-5.9) L 06/12/19 09:00 Hgb 12.8 g/dL (13.5-17.5) L 06/12/19 09:00 Hct 37.0 % (41-53) L 06/12/19 09:00 MCV 98.2 fL (80-100) 06/12/19 09:00 MCH 34.0 PG (26-34) 06/12/19 09:00 MCHC 34.6 % (30-36) 06/12/19 09:00 RDW 16.8 % (11.6-14.8) H 06/12/19 09:00 Plt Count 91 X10^3/uL (150-400) L 06/12/19 09:00 Neut % (Auto) 38.4 % (50-75) L 06/12/19 09:00 Lymph % (Auto) 43.0 % (25-40) H 06/12/19 09:00 [place] % (Auto) 14.2 % (3-14) H 06/12/19 09:00 Eos % (Auto) 4.0 % (2-4) 06/12/19 09:00 Baso % (Auto) 0.4 % (0-2) 06/12/19 09:00 Neut # (Auto) 2100 /uL (5196-5440) 06/12/19 09:00 Lymph # (Auto) 2300 /uL (5557-1148) 06/12/19 09:00 [place] # (Auto) 800 /uL (0-900) 06/12/19 09:00 Eos # (Auto) 200 /uL (0-450) 06/12/19 09:00 Baso # (Auto) 0 /uL (0-100) 06/12/19 09:00 Total Counted 100 05/15/19 14:05 Seg Neutrophils % 14.0 % (38-70) L 05/15/19 14:05 Lymphocytes % (Manual) 74.0 % (25-45) H 05/15/19 14:05 Monocytes % (Manual) 7.0 % (2-11) 05/15/19 14:05 Eosinophils % (Manual) 5.0 % (2-4) H 05/15/19 14:05 Neutrophils # (Manual) 602 /uL (9924-5659) L 05/15/19 14:05 RBC Morphology See below 05/15/19 14:05 Anisocytosis 2+ H 05/15/19 14:05 Sodium 138 mmol/L (137-145) 06/12/19 09:00 Potassium 4.5 mmol/L (3.4-5.1) 06/12/19 09:00 Chloride 105 mmol/L (98-107) 06/12/19 09:00 Carbon Dioxide 25 mmol/L (22-32) 06/12/19 09:00 BUN 14 mg/dL (9-20) 06/12/19 09:00 Creatinine 0.80 mg/dL (0.66-1.25) 06/12/19 09:00 Estimated GFR > 60.0 mL/min (>60) 06/12/19 09:00 BUN/Creatinine Ratio 17.5 (6-22) 06/12/19 09:00 Glucose 101 mg/dL (80-110) 06/12/19 09:00 Calcium 9.0 mg/dL (8.4-10.2) 06/12/19 09:00 Total Bilirubin 0.6 mg/dL (0.2-1.3) 06/12/19 09:00 AST 44 IU/L (17-59) 06/12/19 09:00 ALT 23 IU/L (<50) 06/12/19 09:00 Alkaline Phosphatase 113 U/L (38-126) 06/12/19 09:00 Total Protein 7.4 g/dL (6.3-8.2) 06/12/19 09:00 Albumin 4.1 g/dL (3.5-5.0) 06/12/19 09:00 Globulin 3.3 g/dL (1.7-4.1) 06/12/19 09:00 Albumin/Globulin Ratio 1.2 (1.0-2.8) 06/12/19 09:00 - Imaging Additional studies: Procedures Colonoscopy (01/14/12) Assessment and Plan (1) Rectal cancer Overview: 79-year-old man rectal cancer. He has completed new adjuvant FOLFOX for 8 cycles followed by concurrent chemo radiotherapy on August the 06/22/2020. You had a [facility] tumor board recommended [id number] approach. 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 Patient is on oxygen 24/01 and is being followed by geologic technician Dr. Wolf Assessment: . Patient and patient's both asked whether it is necessary to continue follow-up at our clinic. Currently he has been followed by Dr. Sethi as far as rectal cancer is concerned. Regarding his pulmonary issues, he has been followed by Dr. Wolf. Patient also has been followed by his primary care provider Dr. Flores at [place]. Patient was wondering if it is ok to have the port removed. I talked with him that since there is evidence of blood clot of the port and there is no plan for any chemotherapy in the near future, I would agree to proceed with port removal. As far as the anticoagulation for the port thrombosis is concerned, I recommend that we continue the anticoagulation with Eliquis for at least 6 months. Patient voiced understanding. Patient said that they will call for follow-up visit. Plan; Continue Eliquis 5 mg bid for at least [address] Godinez for Port removal Patient will f/w with Dr. Barraza, Dr. Wolf and Dr. Flores Patient prefers to to call for follow up
== END ==
PROVIDERS: PCP Family Medicine
DX: C20 Malignant neoplasm of rectum (principal); J84.89 Other specified interstitial pulmonary diseases; R06.02 Shortness of breath; T82.868A Thrombosis due to vascular prosthetic devices, implants and grafts, initial encounter; R53.83 Other fatigue; Z79.01 Long term (current) use of anticoagulants; Z77.090 Contact with and (suspected) exposure to asbestos; Z99.81 Dependence on supplemental oxygen; Z85.46 Personal history of malignant neoplasm of prostate
CPT/HCPCS: 36000; 36415; 36591; 36593; 71045; 80053; 85025; 96365; 96366; 96368; 96374; 96375; 96376; 96409; 96411; 96413; 96415; 96417; 96523; 99204; 99211; 99214; J0640; J1100; J2250; J2405; J2704; J2997; J3010; J9190; J9263

== ENCOUNTER → 2019-11-30 13:33 | Outpatient (CLI) | payer MEDICARE, OTHER, SELFPAY ==
[2019-12-01 21:41] LABS: COVID19 Sendout Not Detected (Not Detect)
== END ==
PROVIDERS: Family Provider Family Medicine; PCP Family Medicine; Visit Provider Registered Nurse
DX: Z01.812 Encounter for preprocedural laboratory examination (principal)
CPT/HCPCS: 87635

== ENCOUNTER 2019-12-04 10:24 | Day surgery (SDC) | payer MEDICARE, OTHER, SELFPAY ==
[2019-12-04] VITALS (10 sets, daily range): BP systolic 103–117; BP diastolic 58–74; PULSE 59–96; RESP 9–36; TEMP 35.7–36.7; O2SAT 92–100; BMI 28.3
[2019-12-04] MEDS: LACTATED RINGERS 1,000 ML 42 ML IV (10:55)
[2019-12-04] MEDS: LACTATED RINGERS 1,000 ML 100 ML IV (11:04)
--- NOTE | 2019-12-04 11:11 | PM.PREOP ---
Pre-operative Note COVID-19 COVID-19 status: Negative Result date/Date tested (Pos, Neg/Pending): 11/30/19 Interval Note History & Physical reviewed/Exam performed by Physician: Yes Changes to H&P: No
--- NOTE | 2019-12-04 12:41 | SUR.PREOP ---
Warm blanket provided. Updated family and patient regarding surgery delay. Verbalizes understanding.
[2019-12-04] MEDS: CEFAZOLIN 2 GM/100 ML FROZ.PIGGY IV (13:52)
--- NOTE | 2019-12-04 14:09 | SUR.OPER ---
Supine on padded patient bed, head on pillow, arm padded and tucked at side, legs uncrossed, tape over blanket over lower legs . side rail up
[2019-12-04] MEDS: BUPIVACAINE 0.25% (PF) VIAL 30 ML INJ (14:15)
--- NOTE | 2019-12-04 14:31 | PM.OP.1 ---
Operative Date/Time/Diagnoses Date of procedure: 12/04/19 Time of procedure: 14:31 Pre-op diagnosis: Rectal cancer Post-op diagnosis: same Procedure & Clinicians Procedure: Removal of Port-A-Cath Same procedure as scheduled: Yes Indications: Completed chemotherapy for rectal cancer here for Port-A-Cath removal Surgeon: Ru Godinez Click Yes if Unassisted: Yes Anesthesia Type: General Operative Notes Findings: Catheter is intact Specimen(s): none sent Estimated Blood Loss (mL): 10 Procedure in detail: Patient was brought to the operating room placed supine on the on the table. Bilateral lower extremity compression devices were applied. He received 2 g of Ancef prior to skin incision. General anesthesia was induced and he was intubated with an endotracheal tube. Time-out was performed ensure the correct patient procedure necessary equipment within the operating room. He was then prepped and draped in sterile fashion. I made an incision over the previous port scar. Subcutaneous tissues were divided. The port was encountered and was for freed from the surrounding tissue. A 3 0 Vicryl suture was then used to ligate the catheter entry site as it was simultaneously withdrawn. Hemostasis was achieved. Subcutaneous tissues were reapproximated with 3 0 Vicryl and the skin closed with a running 4 Monocryl followed by application of Dermabond Steri-Strips. Patient tolerated procedure well he extubated and was transferred to the recovery room stable condition. Complications: none Post-operative Condition: stable Disposition: same day surgery
[2019-12-04] MEDS: BENZONATATE 100 MG CAPSULE PO (14:47)
--- NOTE | 2019-12-04 14:49 | SUR.PHASEI ---
Patient coughing frequently. Denied dyspnea. Patient requested Tessalon perles as per home routine. Dr. Godinez notified, med ordered and given.
--- NOTE | 2019-12-04 15:12 | SUR.PHASEII ---
Updated patient's with patient's progress. Patient states he is not quite ready to be discharged. VSS.
== END 2019-12-04 15:50 | disposition home or self-care (01) ==
PROVIDERS: PCP Family Medicine; Referring Provider Surgery; Visit Provider Surgery
PROC: (CPT 36590; principal; 2019-12-04 11:45)
DX: Z45.2 Encounter for adjustment and management of vascular access device (principal); C20 Malignant neoplasm of rectum; J44.9 Chronic obstructive pulmonary disease, unspecified; Z99.81 Dependence on supplemental oxygen; Z79.01 Long term (current) use of anticoagulants
CPT/HCPCS: 36590; J0690